=== PATIENT | male | born 1940 | race Caucasian/White ===

== ENCOUNTER → 2016-08-19 | Outpatient (CLI) | payer MEDICARE ==
[2016-08-19 08:54] LABS: Basophils % (A) 1 %; CH 27.6; CHCM 31.2; Eosinophils # (A) 0.1 k/uL (0-0.7); Eosinophils % (A) 3 %; HCT 36.3 % (39.0-53.0); HDW 2.42; HGB 11.5 gm/dL (13.0-17.5); Hypochromasia Slight; Luc % (Auto) 4; Lymphocytes # (A) 1.9 k/uL (1.0-4.8); Lymphocytes % (A) 36 %; MCH 28.2 pg (25.0-35.0); MCHC 31.7 g/dL (31.0-37.0); MCV 88.9 fL (80.0-100.0); Mean Platelet Volume 8.5; Monocytes # (A) 0.3 k/uL (0-1.0); Monocytes % (A) 6 %; Neutrophils # (A) 2.8 k/uL (1.3-7.7); Neutrophils % (A) 52 %; RBC 4.08 m/uL (4.30-5.90); RDW 15.6 % (11.5-15.5); WBC 5.3 k/uL (3.8-10.6); WBC (Perox) 5.66
[2016-08-19 10:28] LABS: Hemoglobin A1C 7.5 % (4.2-6.1)
[2016-08-19 12:22] LABS: Calcium 9.6 mg/dL (8.4-10.2); Potassium 5.6 mmol/L (3.5-5.1); Total Bilirubin 0.5 mg/dL (0.2-1.3); Total Protein 7.1 g/dL (6.3-8.2)
[2016-08-19 12:35] LABS: % Iron Saturation 13.8 % (20-50)
== END | disposition home or self-care (01) ==
LOC: LABWHC1 08:10
PROVIDERS: ATTEND Internal Medicine
DX: C67.9 Malignant neoplasm of bladder, unspecified (principal); I25.10 Atherosclerotic heart disease of native coronary artery without angina pectoris; E11.9 Type 2 diabetes mellitus without complications; I10 Essential (primary) hypertension; E03.9 Hypothyroidism, unspecified; D50.9 Iron deficiency anemia, unspecified; E78.00 Pure hypercholesterolemia, unspecified
CPT/HCPCS: 36415; 80053; 80061; 82550; 82728; 83036; 83540; 83550; 84443; 85025

== ENCOUNTER → 2016-12-16 | Outpatient (CLI) | payer MEDICARE ==
[2016-12-16 09:18] LABS: Calcium 9.2 mg/dL (8.4-10.2); Potassium 5.4 mmol/L (3.5-5.1); Total Bilirubin 0.5 mg/dL (0.2-1.3)
== END | disposition home or self-care (01) ==
LOC: LABWHC1 08:08
PROVIDERS: ATTEND Internal Medicine
DX: I25.10 Atherosclerotic heart disease of native coronary artery without angina pectoris (principal); E11.9 Type 2 diabetes mellitus without complications; I10 Essential (primary) hypertension
CPT/HCPCS: 36415; 80053; 80061; 82550; 83036

== ENCOUNTER 2016-12-19 09:05 | Emergency (ER) | payer MEDICARE ==
[2016-12-19] MEDS ORDERED: SODIUM CHLORIDE 0.9% 1,000 ML IV STA (09:31)
--- NOTE | 2016-12-19 09:35 | ED ---
General Adult HPI - General Chief complaint: Dizziness Stated complaint: dizziness Time Seen by Provider: 12/19/16 09:20 Source: patient, RN notes reviewed Mode of arrival: wheelchair Limitations: no limitations - History of Present Illness Initial comments: Patient is a pleasant 76-year-old male presenting to the emergency department with dizziness. Onset was when he woke this morning. Patient felt lightheaded. Patient states symptoms slowly improved throughout the morning and have now resolved. Patient has had somewhat similar symptoms previously with getting up fast however states this was not as bad lasted longer. Patient denies spinning type sensation. Patient did go to the gym today. No weakness. No confusion. No headache. No visual change. No chest pain. - Related Data Home Medications Medication Instructions Recorded Confirmed ALPRAZolam [Xanax] 0.5 mg PO HS 12/19/16 12/19/16 Aspirin 325 mg PO DAILY 12/19/16 12/19/16 Cholecalciferol (Vitamin D3) 2,000 unit PO W/SUPPER 12/19/16 12/19/16 [Vitamin D3] Cinnamon Bark [Cinnamon] 1,000 mg PO AC-BID 12/19/16 12/19/16 Clopidogrel [Plavix] 75 mg PO W/LUNCH 12/19/16 12/19/16 Fenofibrate [Fenofibrate] 160 mg PO W/LUNCH 12/19/16 12/19/16 Ferrous Sulfate [Feosol] 325 mg PO W/LUNCH 12/19/16 12/19/16 Fish Oil/Dha/Epa [Fish Oil 1,200 1 cap PO AC-BID 12/19/16 12/19/16 mg Fish Oil] Glimepiride [Amaryl] 2 mg PO AC-BID 12/19/16 12/19/16 Levothyroxine Sodium [Synthroid] 75 mcg PO DAILY@0200 12/19/16 12/19/16 Lisinopril [Lisinopril] 40 mg PO W/LUNCH 12/19/16 12/19/16 Metoprolol Succinate [Toprol XL] 25 mg PO DAILY 12/19/16 12/19/16 Multivitamins, Thera [Multivitamin 1 tab PO W/SUPPER 12/19/16 12/19/16 (formulary)] Nitroglycerin [Nitroglycerin] 0.4 mg PO Q5M PRN 12/19/16 12/19/16 Rosuvastatin Calcium [Rosuvastatin 40 mg PO HS 12/19/16 12/19/16 Calcium] Terazosin HCl 10 mg PO HS 12/19/16 12/19/16 Ubidecarenone [Co Q-10] 300 mg PO W/SUPPER 12/19/16 12/19/16 metFORMIN HCL [Glucophage] 1,000 mg PO AC-BID 12/19/16 12/19/16 Allergies Allergy/AdvReac Type Severity Reaction Status Date / Time No Known Allergies Allergy Verified 12/19/16 10:31 Review of Systems ROS Statement: Those systems with pertinent positive or pertinent negative responses have been documented in the HPI. ROS Other: All systems not noted in ROS Statement are negative. Constitutional: Denies: fever Eyes: Denies: eye pain ENT: Denies: ear pain Respiratory: Denies: cough Cardiovascular: Denies: chest pain, palpitations Endocrine: Denies: fatigue Gastrointestinal: Denies: abdominal pain Genitourinary: Denies: dysuria Musculoskeletal: Denies: back pain Skin: Denies: rash Neurological: Denies: headache, weakness, confusion Past Medical History Past Medical History: Diabetes Mellitus, Hyperlipidemia, Hypertension Additional Past Medical History / Comment(s): bladder CA History of Any Multi-Drug Resistant Organisms: None Reported Past Surgical History: Appendectomy, Coronary Bypass/CABG, Heart Catheterization With Stent, Pacemaker Additional Past Surgical History / Comment(s): stents in right leg Past Psychological History: No Psychological Hx Reported Smoking Status: Former smoker Past Alcohol Use History: None Reported Past Drug Use History: None Reported General Exam Limitations: no limitations General appearance: alert, in no apparent distress Head exam: Present: atraumatic Eye exam: Present: normal appearance, PERRL, EOMI. Absent: nystagmus ENT exam: Present: normal oropharynx Neck exam: Present: normal inspection Respiratory exam: Present: normal lung sounds bilaterally Cardiovascular Exam: Present: regular rate, normal rhythm, systolic murmur GI/Abdominal exam: Present: soft. Absent: tenderness Extremities exam: Present: normal inspection Neurological exam: Present: alert, CN II-XII intact. Absent: motor sensory deficit Expanded Speech: Present: fluid speech Cranial nerves: EOM's Intact: Normal, Facial Sensation: Normal Sensory exam: Upper Extremity Light Touch: Normal, Lower Extremity Light Touch: Normal Motor strength exam: RUE: 5, LUE: 5, RLE: 5, LLE: 5 Eye Response: (4) open spontaneously Motor Response: (6) obeys commands Verbal Response: (5) oriented Psychiatric exam: Present: normal affect, normal mood Skin exam: Present: normal color Course Vital Signs 12/19/16 12/19/16 12/19/16 09:08 10:18 10:38 Temperature 97.0 F L Pulse Rate 66 66 Pulse Rate [ 72 Sitting Latcher] Pulse Rate [ 64 Standing Latcher ] Pulse Rate [ 67 Supine Latcher] Respiratory 17 18 Rate Blood Pressure 171/82 154/74 Blood Pressure 168/80 [Right Arm Sitting] Blood Pressure 203/81 [Right Arm Standing] Blood Pressure 165/79 [Right Arm Supine] O2 Sat by Pulse 99 99 Oximetry EKG Findings - EKG Comments: EKG Findings:: Paced rhythm at 64. W[place] 298. QRS 178. QT 446. QTc 460. Left axis. Left bundle branch block. Nonspecific ST-T. Medical Decision Making - Medical Decision Making Patient reexamined and symptom-free. Previous lab results reviewed. Patient and family updated on results and need for follow-up. - Lab Data Result diagrams: 12/19/16 09:34 12/19/16 09:34 Lab Results 12/19/16 12/19/16 12/19/16 Range/Units 09:34 09:34 09:34 WBC 4.5 (3.8-10.6) k/uL RBC 4.06 L (4.30-5.90) m/uL Hgb 11.5 L (13.0-17.5) gm/dL Hct 35.0 L (39.0-53.0) % MCV 86.2 (80.0-100.0) fL MCH 28.2 (25.0-35.0) pg MCHC 32.8 (31.0-37.0) g/dL RDW 15.2 (11.5-15.5) % Plt Count 128 L (150-450) k/uL Neutrophils % 64 % Lymphocytes % 25 % Monocytes % 7 % Eosinophils % 1 % Basophils % 0 % Neutrophils # 2.9 (1.3-7.7) k/uL Lymphocytes # 1.1 (1.0-4.8) k/uL Monocytes # 0.3 (0-1.0) k/uL Eosinophils # 0.1 (0-0.7) k/uL Basophils # 0.0 (0-0.2) k/uL PT (9.0-12.0) sec INR (<1.2) APTT (22.0-30.0) sec Sodium 137 (137-145) mmol/L Potassium 5.2 H (3.5-5.1) mmol/L Chloride 107 (98-107) mmol/L Carbon Dioxide 18 L (22-30) mmol/L Anion Gap 12 mmol/L BUN 27 H (9-20) mg/dL Creatinine 1.46 H (0.66-1.25) mg/dL Est GFR (MDRD) Af Amer 57 (>60 ml/min/1.73 sqM) Est GFR (MDRD) Non-Af 47 (>60 ml/min/1.73 sqM) Glucose 239 H (74-99) mg/dL Calcium 9.6 (8.4-10.2) mg/dL Total Bilirubin 0.3 (0.2-1.3) mg/dL AST 46 (17-59) U/L ALT 50 (21-72) U/L Alkaline Phosphatase 45 (38-126) U/L Total Creatine Kinase 210 H (55-170) U/L CK-MB (CK-2) 3.1 H* (0.0-2.4) ng/mL CK-MB (CK-2) Rel Index 1.5 Troponin I 0.015 (0.000-0.034) ng/mL Total Protein 7.1 (6.3-8.2) g/dL Albumin 4.6 (3.5-5.0) g/dL 12/19/16 Range/Units 09:34 WBC (3.8-10.6) k/uL RBC (4.30-5.90) m/uL Hgb (13.0-17.5) gm/dL Hct (39.0-53.0) % MCV (80.0-100.0) fL MCH (25.0-35.0) pg MCHC (31.0-37.0) g/dL RDW (11.5-15.5) % Plt Count (150-450) k/uL Neutrophils % % Lymphocytes % % Monocytes % % Eosinophils % % Basophils % % Neutrophils # (1.3-7.7) k/uL Lymphocytes # (1.0-4.8) k/uL Monocytes # (0-1.0) k/uL Eosinophils # (0-0.7) k/uL Basophils # (0-0.2) k/uL PT 13.2 H (9.0-12.0) sec INR 1.3 H (<1.2) APTT 27.2 (22.0-30.0) sec Sodium (137-145) mmol/L Potassium (3.5-5.1) mmol/L Chloride (98-107) mmol/L Carbon Dioxide (22-30) mmol/L Anion Gap mmol/L BUN (9-20) mg/dL Creatinine (0.66-1.25) mg/dL Est GFR (MDRD) Af Amer (>60 ml/min/1.73 sqM) Est GFR (MDRD) Non-Af (>60 ml/min/1.73 sqM) Glucose (74-99) mg/dL Calcium (8.4-10.2) mg/dL Total Bilirubin (0.2-1.3) mg/dL AST (17-59) U/L ALT (21-72) U/L Alkaline Phosphatase (38-126) U/L Total Creatine Kinase (55-170) U/L CK-MB (CK-2) (0.0-2.4) ng/mL CK-MB (CK-2) Rel Index Troponin I (0.000-0.034) ng/mL Total Protein (6.3-8.2) g/dL Albumin (3.5-5.0) g/dL - Radiology Data Radiology results: report reviewed (Computed tomography scan of the brain shows no acute intercranial abnormality. Moderate patchy white matter hypodensities, probable chronic small vessel disease.), image reviewed (Chest x-ray shows no acute process.) Disposition Clinical Impression: Dizziness Disposition: HOME SELF-CARE Condition: Stable Instructions: Dizziness (ED) Additional Instructions: Please follow-up to in the next day or 2 for recheck. Return for increased dizziness, weakness, confusion, chest pain, speech problems, worsening symptoms or other concerns. Referrals: Chaz Mcdonald MD [Primary Care Provider] - 1-2 days Time of Disposition: 11:07
[2016-12-19 09:50] LABS: Basophils % (A) 0 %; CH 27.3; CHCM 31.8; Eosinophils # (A) 0.1 k/uL (0-0.7); Eosinophils % (A) 1 %; HDW 2.59; HGB 11.5 gm/dL (13.0-17.5); Luc # (Auto) 0.13; Luc % (Auto) 3; Lymphocytes # (A) 1.1 k/uL (1.0-4.8); Lymphocytes % (A) 25 %; MCH 28.2 pg (25.0-35.0); MCHC 32.8 g/dL (31.0-37.0); MCV 86.2 fL (80.0-100.0); Mean Platelet Volume 8.9; Monocytes # (A) 0.3 k/uL (0-1.0); Monocytes % (A) 7 %; Neutrophils # (A) 2.9 k/uL (1.3-7.7); Neutrophils % (A) 64 %; RBC 4.06 m/uL (4.30-5.90); RDW 15.2 % (11.5-15.5); WBC 4.5 k/uL (3.8-10.6); WBC (Perox) 4.25
[2016-12-19 09:58] LABS: INR 1.3 (<1.2); Partial Thromboplastin Time 27.2 sec (22.0-30.0); Prothrombin Time 13.2 sec (9.0-12.0)
[2016-12-19 10:06] LABS: Calcium 9.6 mg/dL (8.4-10.2); Potassium 5.2 mmol/L (3.5-5.1); Total Bilirubin 0.3 mg/dL (0.2-1.3); Total Protein 7.1 g/dL (6.3-8.2)
--- NOTE | 2016-12-19 10:19 | CT ---
EXAMINATION TYPE: CT brain wo con DATE OF EXAM: 12/19/2016 COMPARISON: NONE HISTORY: 76-year-old male with vertigo and Dizziness TECHNIQUE: Examination was done in axial plane without intravenous contrast. Coronal and sagittal r econstructions performed. CT DLP: 1121 mGycm Automated exposure control for dose reduction was used. FINDINGS: There is no evidence of acute intracranial hemorrhage, acute ischemic changes, mass, mass-effect, or extra-axial fluid collection. There is no effacement of cerebral sulci or basal subarachnoid cister ns. There is no hydrocephalus. There is no midline shift. Spann-white matter distinction is preserv ed. Mild generalized supratentorial volume loss. Moderate patchy subcortical, periventricular, and deep w kevin matter hypodensities are present. There is a sinuses and mastoid air cells are well pneumatized. Orbits and globes are intact. IMPRESSION: 1. No acute intracranial abnormality seen. 2. Moderate patchy white matter hypodensities. These are nonspecific and are probably related to echavarria ges of chronic small vessel ischemic disease. In the appropriate clinical setting, demyelinating dise ase would also be in the differential.
--- NOTE | 2016-12-19 10:20 | XR ---
EXAMINATION TYPE: XR chest 2V DATE OF EXAM: 12/19/2016 COMPARISON: NONE HISTORY: Syncope TECHNIQUE: Frontal and lateral views of the chest are obtained. FINDINGS: There is no focal air space opacity, pleural effusion, or pneumothorax seen. The cardiac silhouette size is enlarged with postsurgical changes including mediastinal clips and median sternoto my wires as well as left-sided cardiac device. The osseous structures are intact. Right costophreni c angle is not imaged and cannot be evaluated. IMPRESSION: No acute cardiopulmonary process.
[2016-12-19 10:46] LABS: Troponin I 0.015 ng/mL (0.000-0.034)
[2016-12-19 10:52] LABS: Creatine Kinase MB 3.1 ng/mL (0.0-2.4)
[2016-12-19 11:08] LABS: Glucose,Whole Blood 144 mg/dL (75-99)
[2016-12-19 11:17] VITALS: BP 155/72; PULSE 60; RESP 16; TEMP 97.2
== END 2016-12-19 11:17 | disposition home or self-care (01) ==
LOC: EC 09:05
DX: R42 Dizziness and giddiness (principal); R90.82 White matter disease, unspecified; R01.1 Cardiac murmur, unspecified; E78.5 Hyperlipidemia, unspecified; I10 Essential (primary) hypertension; E11.9 Type 2 diabetes mellitus without complications; Z87.891 Personal history of nicotine dependence; Z79.02 Long term (current) use of antithrombotics/antiplatelets; Z79.82 Long term (current) use of aspirin; Z79.84 Long term (current) use of oral hypoglycemic drugs; Z79.899 Other long term (current) drug therapy
CPT/HCPCS: 36415; 70450; 71020; 80053; 82550; 82553; 84484; 85025; 85610; 85730; 93005; 96360; 99284

== ENCOUNTER → 2017-08-18 | Outpatient (CLI) | payer MEDICARE ==
[2017-08-18 08:28] LABS: Basophils % (A) 1 %; Eosinophils # (A) 0.1 k/uL (0-0.7); Eosinophils % (A) 2 %; HCT 33.9 % (39.0-53.0); HGB 10.7 gm/dL (13.0-17.5); Lymphocytes # (A) 1.5 k/uL (1.0-4.8); Lymphocytes % (A) 31 %; MCH 27.2 pg (25.0-35.0); MCHC 31.6 g/dL (31.0-37.0); MCV 86.3 fL (80.0-100.0); Mean Platelet Volume 8.9; Monocytes # (A) 0.3 k/uL (0-1.0); Monocytes % (A) 6 %; Neutrophils # (A) 2.7 k/uL (1.3-7.7); Neutrophils % (A) 59 %; Platelet Count 134 k/uL (150-450); RBC 3.93 m/uL (4.30-5.90); RDW 15.4 % (11.5-15.5); WBC 4.6 k/uL (3.8-10.6)
[2017-08-18 08:42] LABS: Albumin 4.5 g/dL (3.5-5.0); Calcium 9.6 mg/dL (8.4-10.2); Potassium 5.4 mmol/L (3.5-5.1); Total Bilirubin 0.4 mg/dL (0.2-1.3); Total Protein 6.8 g/dL (6.3-8.2)
[2017-08-18 16:19] LABS: Iron Saturation 12.7 (15.00-50.00)
== END | disposition home or self-care (01) ==
LOC: LABWHC1 07:43
PROVIDERS: ATTEND Internal Medicine
DX: I10 Essential (primary) hypertension (principal); E11.9 Type 2 diabetes mellitus without complications; D64.9 Anemia, unspecified
CPT/HCPCS: 36415; 80053; 80061; 82550; 82607; 82728; 83036; 83540; 83550; 85025

== ENCOUNTER → 2017-09-11 | Outpatient (CLI) | payer MEDICARE ==
--- NOTE | 2017-09-11 10:21 | US ---
EXAMINATION TYPE: US venous doppler duplex LE DATE OF EXAM: 09/11/2017 10:00 AM COMPARISON: NONE CLINICAL HISTORY: Q07115 DVT, R60.0 EDEMA LEG. Right leg swelling. Hx of right leg stents x 3 years ago, on blood thinners- aspirin and Plavix. No hx of blood clots. No pain now. SIDE PERFORMED: Bilateral TECHNIQUE: The lower extremity deep venous system is examined utilizing real time linear array sonog bianca with graded compression, doppler sonography and color-flow sonography. VESSELS IMAGED: External Iliac Vein (EIV) Common Femoral Vein Deep Femoral Vein Greater Saphenous Vein * Femoral Vein Popliteal Vein Small Saphenous Vein * Proximal Calf Veins (* superficial vessels) Limited exam due to arterial shadowing Right Leg: Negative for DVT Left Leg: Negative for DVT Grayscale, color doppler, spectral doppler imaging performed of the deep veins of the bilateral lower extremities. There is normal flow, compressibility, vascular waveforms. IMPRESSION: Suboptimal study per technologist without convincing evidence for acute DVT in either l ower extremity.
--- NOTE | 2017-09-11 10:23 | US ---
EXAMINATION TYPE: US duplex aorta DATE OF EXAM: 09/11/2017 COMPARISON: NONE CLINICAL HISTORY: R09.89 ABDOMINAL BRUIT. Mild ND in May, bruit, bypass in 1993, HTN, Nonsmoker, No family hx of AAA EXAM MEASUREMENTS: Abdominal Aorta: Proximal: 2.5 x 2.5 cm Mid: 1.7 x 2.4 cm Distal: 1.1 x 1.5 cm Bifurcation: Right - 0.8 x 1.0 cm Left - 0.8 x 1.0 cm IMPRESSION: Diffuse atherosclerotic change without aneurysmal change of the abdominal aorta successfu lly visualized through the bifurcation.
== END ==
LOC: RADUSWWP 08:48
PROVIDERS: ATTEND Internal Medicine Cardiovascular Disease
DX: I70.0 Atherosclerosis of aorta (principal); R60.0 Localized edema
CPT/HCPCS: 93970; 93979

== ENCOUNTER → 2017-12-02 | Outpatient (CLI) | payer MEDICARE ==
[2017-12-02 08:55] LABS: Basophils % (A) 0 %; Eosinophils # (A) 0.2 k/uL (0-0.7); Eosinophils % (A) 4 %; HCT 33.7 % (39.0-53.0); HGB 10.4 gm/dL (13.0-17.5); Hypochromasia Slight; Lymphocytes # (A) 1.2 k/uL (1.0-4.8); Lymphocytes % (A) 23 %; MCH 27.1 pg (25.0-35.0); MCHC 30.9 g/dL (31.0-37.0); MCV 87.7 fL (80.0-100.0); Mean Platelet Volume 7.8; Monocytes # (A) 0.3 k/uL (0-1.0); Monocytes % (A) 7 %; Neutrophils # (A) 3.2 k/uL (1.3-7.7); Neutrophils % (A) 64 %; Platelet Count 125 k/uL (150-450); RBC 3.84 m/uL (4.30-5.90); RDW 15.9 % (11.5-15.5)
[2017-12-02 09:00] LABS: Calcium 9.5 mg/dL (8.4-10.2); Potassium 5.7 mmol/L (3.5-5.1)
== END | disposition home or self-care (01) ==
LOC: LABWHC1 07:44
PROVIDERS: ATTEND Internal Medicine
DX: E11.9 Type 2 diabetes mellitus without complications (principal)
CPT/HCPCS: 36415; 80048; 80061; 82550; 83036; 84450; 84460; 85025

== ENCOUNTER → 2018-08-13 | Outpatient (CLI) | payer MEDICARE ==
[2018-08-13 08:17] LABS: Anisocytosis Slight; Basophils % (A) 1 %; Eosinophils # (A) 0.1 k/uL (0-0.7); Eosinophils % (A) 3 %; HCT 34.6 % (39.0-53.0); HGB 10.6 gm/dL (13.0-17.5); Hypochromasia Slight; Lymphocytes # (A) 1.3 k/uL (1.0-4.8); Lymphocytes % (A) 31 %; MCH 26.9 pg (25.0-35.0); MCHC 30.6 g/dL (31.0-37.0); MCV 87.9 fL (80.0-100.0); Mean Platelet Volume 9.8; Monocytes # (A) 0.2 k/uL (0-1.0); Monocytes % (A) 6 %; Neutrophils # (A) 2.4 k/uL (1.3-7.7); Neutrophils % (A) 56 %; Platelet Count 115 k/uL (150-450); RBC 3.93 m/uL (4.30-5.90); WBC 4.2 k/uL (3.8-10.6)
[2018-08-13 16:37] LABS: Albumin 4.6 g/dL (3.80-4.90); Albumin/Globulin Ratio 2.71 (1.60-3.17); Anion Gap 6.2 mmol/L (4.00-12.00); Calcium 8.9 mg/dL (8.7-10.3); Carbon Dioxide 22.8 mmol/L (21.6-31.8); Globulin 1.7 g/dL (1.6-3.3); Total Bilirubin 0.5 mg/dL (0.2-1.2); Total Protein 6.3 g/dL (6.2-8.2)
[2018-08-13 16:44] LABS: Iron Saturation 10.68 (15.00-50.00)
== END | disposition home or self-care (01) ==
LOC: LABWHC1 07:54
PROVIDERS: ATTEND Internal Medicine
DX: E11.9 Type 2 diabetes mellitus without complications (principal); D64.9 Anemia, unspecified
CPT/HCPCS: 36415; 80053; 80061; 82550; 83036; 83540; 83550; 85025

== ENCOUNTER → 2018-11-18 | Outpatient (CLI) | payer MEDICARE ==
[2018-11-18 08:57] LABS: Anisocytosis Slight; Appearance,Urine Clear (Clear); Basophils % (A) 1 %; Bilirubin,Urine Negative (Negative); Blood,Urine Negative (Negative); Color,Urine Yellow; Eosinophils # (A) 0.1 k/uL (0-0.7); Eosinophils % (A) 2 %; Glucose,Urine (UA) Negative (Negative); HCT 29.6 % (39.0-53.0); HGB 9.2 gm/dL (13.0-17.5); Hypochromasia Slight; Ketones,Urine Negative (Negative); Leukocyte Esterase,Urine Negative (Negative); Lymphocytes % (A) 23 %; MCH 27.1 pg (25.0-35.0); MCHC 31.2 g/dL (31.0-37.0); MCV 86.9 fL (80.0-100.0); Mean Platelet Volume 9.3; Monocytes # (A) 0.3 k/uL (0-1.0); Monocytes % (A) 6 %; Neutrophils # (A) 2.9 k/uL (1.3-7.7); Neutrophils % (A) 67 %; Nitrite,Urine Negative (Negative); PH, Urine 6.5 (5.0-8.0); Platelet Count 105 k/uL (150-450); Protein,Urine Negative (Negative); RDW 17.5 % (11.5-15.5); Specific Gravity,Urine 1.018 (1.001-1.035); Urobilinogen,Urine <2.0 mg/dL (<2.0); WBC 4.3 k/uL (3.8-10.6)
[2018-11-18 17:22] LABS: Iron Saturation 9.7 (15.00-50.00)
[2018-11-18 17:30] LABS: Ferritin 88.6 ng/mL (22.0-322.0)
[2018-11-18 17:48] LABS: African American GFR (CKD) 60.6 (60.0-200.0); Albumin 4.6 g/dL (3.80-4.90); Albumin/Globulin Ratio 2.56 (1.60-3.17); Anion Gap 9.5 mmol/L (4.00-12.00); BUN/Creat Ratio 23.08 Ratio (12.00-20.00); Calcium 9.2 mg/dL (8.7-10.3); Carbon Dioxide 19.5 mmol/L (21.6-31.8); Chol/HDL Ratio 2.48; Globulin 1.8 g/dL (1.6-3.3); LDL Cholesterol,Calculated 56.8 mg/dL (0.0-131.0); Magnesium 1.9 mg/dL (1.5-2.4); Non-African American GFR(CKD) 52.3 (60.0-200.0); Potassium 5.3 mmol/L (3.5-5.5); Total Bilirubin 0.6 mg/dL (0.3-1.2); Total Protein 6.4 g/dL (6.2-8.2); VLDL Calculation 20.2 mg/dL (5.00-40.00)
== END | disposition home or self-care (01) ==
LOC: LABWHC1 07:48
PROVIDERS: ATTEND Internal Medicine
DX: M48.02 Spinal stenosis, cervical region (principal); E11.9 Type 2 diabetes mellitus without complications; D64.9 Anemia, unspecified; E03.9 Hypothyroidism, unspecified; Z79.01 Long term (current) use of anticoagulants
CPT/HCPCS: 36415; 80053; 80061; 81003; 82550; 82728; 83036; 83540; 83550; 83735; 84443; 85025; 85730; 86850; 87070; 87086

== ENCOUNTER → 2018-12-07 | Outpatient (CLI) | payer MEDICARE ==
[2018-12-07 12:48] LABS: Anisocytosis Slight; HGB 9.2 gm/dL (13.0-17.5); Hypochromasia Slight; MCHC 31.8 g/dL (31.0-37.0); MCV 88.1 fL (80.0-100.0); Mean Platelet Volume 8.7; Platelet Count 105 k/uL (150-450); RBC 3.29 m/uL (4.30-5.90); RDW 18.4 % (11.5-15.5); WBC 4.5 k/uL (3.8-10.6)
== END | disposition home or self-care (01) ==
LOC: LABWHC1 11:28
PROVIDERS: ATTEND Internal Medicine
DX: D64.9 Anemia, unspecified (principal)
CPT/HCPCS: 36415; 85027

== ENCOUNTER → 2019-02-05 | Outpatient (CLI) | payer MEDICARE ==
[2019-02-05 12:46] LABS: Anisocytosis Slight; Basophils % (A) 1 %; Eosinophils # (A) 0.1 k/uL (0-0.7); Eosinophils % (A) 3 %; HCT 27.9 % (39.0-53.0); HGB 8.5 gm/dL (13.0-17.5); Hypochromasia Moderate; Lymphocytes # (A) 0.8 k/uL (1.0-4.8); Lymphocytes % (A) 22 %; MCH 27.2 pg (25.0-35.0); MCHC 30.4 g/dL (31.0-37.0); MCV 89.4 fL (80.0-100.0); Mean Platelet Volume 9.2; Monocytes # (A) 0.2 k/uL (0-1.0); Monocytes % (A) 6 %; Neutrophils # (A) 2.3 k/uL (1.3-7.7); Neutrophils % (A) 66 %; Platelet Count 107 k/uL (150-450); RBC 3.12 m/uL (4.30-5.90); RDW 18.1 % (11.5-15.5); WBC 3.5 k/uL (3.8-10.6)
[2019-02-05 18:49] LABS: % Iron Saturation 10.67 (15.00-50.00)
[2019-02-05 18:58] LABS: Ferritin 87.7 ng/mL (22.0-322.0)
== END | disposition home or self-care (01) ==
LOC: LABWHC1 11:31
PROVIDERS: ATTEND Internal Medicine
DX: D64.9 Anemia, unspecified (principal)
CPT/HCPCS: 36415; 82728; 83540; 83550; 85025

== ENCOUNTER → 2019-03-01 | Outpatient (CLI) | payer MEDICARE ==
[2019-03-01 11:24] LABS: Anisocytosis Slight; Basophils % (A) 0 %; Eosinophils # (A) 0.1 k/uL (0-0.7); Eosinophils % (A) 3 %; HCT 26.6 % (39.0-53.0); HGB 8.4 gm/dL (13.0-17.5); Hypochromasia Moderate; Lymphocytes # (A) 0.9 k/uL (1.0-4.8); Lymphocytes % (A) 23 %; MCH 28.3 pg (25.0-35.0); MCHC 31.4 g/dL (31.0-37.0); MCV 90.1 fL (80.0-100.0); Mean Platelet Volume 7.9; Monocytes # (A) 0.2 k/uL (0-1.0); Monocytes % (A) 5 %; Neutrophils # (A) 2.7 k/uL (1.3-7.7); Neutrophils % (A) 67 %; Platelet Count 124 k/uL (150-450); RBC 2.96 m/uL (4.30-5.90); RDW 17.7 % (11.5-15.5)
[2019-03-01 16:51] LABS: % Iron Saturation 10.21 (15.00-50.00)
[2019-03-01 16:59] LABS: Ferritin 160.9 ng/mL (22.0-322.0)
== END | disposition home or self-care (01) ==
LOC: LABWHC1 10:17
PROVIDERS: ATTEND Internal Medicine
DX: D64.9 Anemia, unspecified (principal)
CPT/HCPCS: 36415; 82728; 83540; 83550; 85025

== ENCOUNTER → 2019-03-12 | Outpatient (CLI) | payer MEDICARE ==
[2019-03-12 09:02] LABS: Anisocytosis Slight; Basophils % (A) 0 %; Eosinophils # (A) 0.1 k/uL (0-0.7); Eosinophils % (A) 2 %; HGB 8.2 gm/dL (13.0-17.5); Hypochromasia Slight; Lymphocytes # (A) 0.9 k/uL (1.0-4.8); Lymphocytes % (A) 22 %; MCH 28.3 pg (25.0-35.0); MCHC 31.7 g/dL (31.0-37.0); MCV 89.3 fL (80.0-100.0); Mean Platelet Volume 10.8; Monocytes # (A) 0.2 k/uL (0-1.0); Monocytes % (A) 6 %; Neutrophils # (A) 2.7 k/uL (1.3-7.7); Neutrophils % (A) 67 %; Platelet Count 104 k/uL (150-450); RBC 2.91 m/uL (4.30-5.90); RDW 17.6 % (11.5-15.5); WBC 4.1 k/uL (3.8-10.6)
[2019-03-12 18:29] LABS: Ferritin 141.1 ng/mL (22.0-322.0); T4, Free (Free Thyroxine) 1.1 ng/dL (0.80-1.80)
[2019-03-12 19:29] LABS: Hemoglobin A1C 5.4 % (4.0-6.0)
[2019-03-12 20:06] LABS: % Iron Saturation 9.11 (15.00-50.00); African American GFR (CKD) 60.6 (60.0-200.0); Albumin 4.6 g/dL (3.80-4.90); Albumin/Globulin Ratio 2.88 (1.60-3.17); Anion Gap 8.8 mmol/L (4.00-12.00); BUN/Creat Ratio 29.23 Ratio (12.00-20.00); Calcium 8.9 mg/dL (8.7-10.3); Carbon Dioxide 21.2 mmol/L (21.6-31.8); Chol/HDL Ratio 2.2; Globulin 1.6 g/dL (1.6-3.3); Non-African American GFR(CKD) 52.3 (60.0-200.0); Potassium 4.9 mmol/L (3.5-5.5); Total Bilirubin 0.6 mg/dL (0.2-1.2); Total Protein 6.2 g/dL (6.2-8.2)
== END ==
LOC: LABWHC1 07:58
PROVIDERS: ATTEND Internal Medicine
DX: E11.9 Type 2 diabetes mellitus without complications (principal); D64.9 Anemia, unspecified; E03.9 Hypothyroidism, unspecified
CPT/HCPCS: 36415; 80053; 80061; 82043; 82550; 82570; 82607; 82728; 83036; 83540; 83550; 84439; 84443; 85025

== ENCOUNTER → 2019-09-13 | Outpatient (CLI) | payer MEDICARE ==
[2019-09-13 10:59] LABS: Appearance,Urine Clear (Clear); Bilirubin,Urine Negative (Negative); Blood,Urine Negative (Negative); Color,Urine Light Yellow; Glucose,Urine (UA) Negative (Negative); Ketones,Urine Negative (Negative); Leukocyte Esterase,Urine Negative (Negative); Nitrite,Urine Negative (Negative); Protein,Urine Negative (Negative); Specific Gravity,Urine 1.008 (1.001-1.035); Urobilinogen,Urine <2.0 mg/dL (<2.0)
[2019-09-13 11:01] LABS: Protein/Creatinine Ratio,Urine 0.313
[2019-09-13 18:07] LABS: African American GFR (CKD) 47.1 (60.0-200.0); Albumin 4.3 g/dL (3.80-4.90); BUN/Creat Ratio 33.75 Ratio (12.00-20.00); Calcium 8.6 mg/dL (8.7-10.3); Non-African American GFR(CKD) 40.7 (60.0-200.0); Phosphorus 4.6 mg/dL (2.4-5.1); Potassium 4.6 mmol/L (3.5-5.5)
== END | disposition home or self-care (01) ==
LOC: LABWHC1 08:55
PROVIDERS: ATTEND Internal Medicine Nephrology
DX: N18.3 Chronic kidney disease, stage 3 (moderate) (principal); E83.9 Disorder of mineral metabolism, unspecified; M89.9 Disorder of bone, unspecified
CPT/HCPCS: 36415; 80069; 81003; 82306; 82570; 83970; 84156

== ENCOUNTER 2019-10-28 18:08 | Emergency (ER) | payer MEDICARE ==
[2019-10-28 18:51] LABS: Anisocytosis Slight; Basophils % (A) 0 %; Eosinophils # (A) 0.1 k/uL (0-0.7); Eosinophils % (A) 2 %; HCT 28.5 % (39.0-53.0); Lymphocytes # (A) 0.7 k/uL (1.0-4.8); Lymphocytes % (A) 12 %; MCH 28.2 pg (25.0-35.0); MCHC 31.6 g/dL (31.0-37.0); MCV 89.1 fL (80.0-100.0); Mean Platelet Volume 8.8; Monocytes # (A) 0.5 k/uL (0-1.0); Monocytes % (A) 8 %; Neutrophils # (A) 4.9 k/uL (1.3-7.7); Neutrophils % (A) 77 %; Platelet Count 120 k/uL (150-450); RDW 17.1 % (11.5-15.5); WBC 6.3 k/uL (3.8-10.6)
[2019-10-28 19:00] LABS: INR 1.4 (<1.2); Prothrombin Time 14.3 sec (9.0-12.0)
[2019-10-28] MEDS ORDERED: DEXTROSE 5% IN WATER 100 ML with AMIODARONE 150 MG IV ONE (19:00)
[2019-10-28] MEDS ORDERED: AMIODARONE 360 MG in DEXTROSE 5% IN WATER 200 ML IV ONE ×2 (19:00)
--- NOTE | 2019-10-28 19:00 | ED ---
General Adult HPI - General Chief complaint: Chest Pain Stated complaint: chest discomfort Time Seen by Provider: 10/28/19 18:31 Source: patient, family, RN notes reviewed, old records reviewed Mode of arrival: wheelchair Limitations: no limitations - History of Present Illness Initial comments: 79-year-old male presenting with 2 hours of chest pain and palpitations. Chest pain is right-sided. Patient has history of CAD status post CABG and stenting. He follows with cardiology out of [facility]. He developed palpitations and racing heart approximately 2 hours ago. He has previous history of arrhythmia but is uncertain of what type. He has required cardioversion in the past. He denies nausea or diaphoresis. He denies abdominal pain nausea vomiting or diarrhea. Denies fever. Denies cough. He is currently on Coreg, he will milligram aspirin. No other anti-arrhythmic drugs or blood thinners. - Related Data Home Medications Medication Instructions Recorded Confirmed ALPRAZolam [Xanax] 0.5 mg PO HS 12/19/16 02/23/19 Cholecalciferol (Vitamin D3) 2,000 unit PO W/SUPPER 12/19/16 02/23/19 [Vitamin D3] Cinnamon Bark [Cinnamon] 1,000 mg PO DAILY 12/19/16 02/23/19 Clopidogrel [Plavix] 75 mg PO W/LUNCH 12/19/16 02/23/19 Fenofibrate 160 mg PO W/LUNCH 12/19/16 02/23/19 Ferrous Sulfate [Feosol] 325 mg PO W/LUNCH 12/19/16 02/23/19 Fish Oil/Dha/Epa [Fish Oil 1,200 1 cap PO AC-BID 12/19/16 02/23/19 mg Fish Oil] Glimepiride [Amaryl] 2 mg PO AC-LUNCH 12/19/16 02/23/19 Metoprolol Succinate [Toprol XL] 50 mg PO BID 12/19/16 02/23/19 Multivitamins, Thera [Multivitamin 1 tab PO W/SUPPER 12/19/16 02/23/19 (formulary)] Nitroglycerin 0.4 mg PO Q5M PRN 12/19/16 02/23/19 Terazosin HCl 10 mg PO HS 12/19/16 02/23/19 lisinopriL [Lisinopril] 40 mg PO W/LUNCH 12/19/16 02/23/19 Ascorbic Acid [Vitamin C] 1,000 mg PO DAILY 02/23/19 02/23/19 Aspirin [Adult Low Dose Aspirin EC] 81 mg PO DAILY 02/23/19 02/23/19 Levothyroxine Sodium [Synthroid] 88 mcg PO QAM 02/23/19 02/23/19 Rosuvastatin [Crestor] 20 mg PO HS 02/23/19 02/23/19 Ubidecarenone [Co Q-10] 100 mg PO DAILY 02/23/19 02/23/19 metFORMIN HCL [Glucophage] 1,000 mg PO AC-LUNCH 02/23/19 02/23/19 metFORMIN HCL [Glucophage] 1,000 mg PO AC-SUPPER 02/23/19 02/23/19 metFORMIN HCL [Glucophage] 500 mg PO AC-BRKFST 02/23/19 02/23/19 Allergies Allergy/AdvReac Type Severity Reaction Status Date / Time No Known Allergies Allergy Verified 10/28/19 18:12 Review of Systems ROS Statement: Those systems with pertinent positive or pertinent negative responses have been documented in the HPI. ROS Other: All systems not noted in ROS Statement are negative. Past Medical History Past Medical History: Diabetes Mellitus, Hyperlipidemia, Hypertension Additional Past Medical History / Comment(s): bladder CA History of Any Multi-Drug Resistant Organisms: None Reported Past Surgical History: Appendectomy, Coronary Bypass/CABG, Heart Catheterization With Stent, Pacemaker Additional Past Surgical History / Comment(s): stents in right leg Past Psychological History: No Psychological Hx Reported Smoking Status: Never smoker Past Alcohol Use History: None Reported Past Drug Use History: None Reported General Exam Limitations: no limitations General appearance: alert, in no apparent distress Head exam: Present: atraumatic, normocephalic Eye exam: Present: normal appearance, PERRL ENT exam: Present: normal exam Neck exam: Present: normal inspection. Absent: tenderness, meningismus Respiratory exam: Present: normal lung sounds bilaterally. Absent: respiratory distress, wheezes Cardiovascular Exam: Present: normal rhythm, tachycardia GI/Abdominal exam: Present: soft, distended. Absent: tenderness, guarding, rebound Extremities exam: Present: pedal edema. Absent: calf tenderness Back exam: Present: normal inspection, full ROM Neurological exam: Present: alert, oriented X3, CN II-XII intact. Absent: motor sensory deficit Psychiatric exam: Present: normal affect, normal mood Skin exam: Present: warm, dry, intact. Absent: cyanosis, diaphoretic Course Vital Signs 10/28/19 10/28/19 10/28/19 18:12 19:37 20:00 Temperature 98 F 97.7 F Pulse Rate 127 H Pulse Rate [ 123 H 118 H Carpet Layer ] Respiratory 20 18 18 Rate Blood Pressure 138/64 Blood Pressure 121/92 136/94 [Left Arm] O2 Sat by Pulse 97 97 98 Oximetry 10/28/19 20:15 Temperature Pulse Rate Pulse Rate [ 120 H Carpet Layer ] Respiratory 18 Rate Blood Pressure Blood Pressure 132/88 [Left Arm] O2 Sat by Pulse Oximetry - Reevaluation(s) Reevaluation #1: 10/28/191954 Case discussed with Dr. eLong, does agree with amiodarone infusion, does also agree with transfer for evaluation by the patient's own collar turner at EKG Findings - EKG Comments: EKG Findings:: EKG: Wide QRS tachycardia, left axis deviation, left bundle branch block, history of left bundle branch block. Rate of 126, QRS duration 170, QTC 559, similar QRS morphology to previous EKG. There is no definitive atrial, question P-wave in lead 2. Medical Decision Making - Medical Decision Making 79-year-old male presenting with palpitations and right-sided chest pain. EKG showed a left bundle branch block which the patient does have history of and a wide complex tachycardia, there is a question of atrial activity seen in lead 2. Rate is 126 and the blood pressure is stable. Patient is started on amiodarone. He has significant heart history and requests transfer to [facility]. Laboratory studies reveal hemoglobin 9, comparison of 8.2 this is improved. He has a normal white blood cell count. INR is 1.4. Sodium is 129. His creatinine is 1.49 which is baseline for this patient. His initial troponin is negative. His BNP is elevated at 2870. Chest x-ray shows cardiomegaly which is larger than previous x-ray in 2017. There is questionable early interstitial edema. I did discuss with the patient transfer versus admission to this hospital, they are requesting transfer to [place]. I discussed the case with the transfer team at [facility] and Dr. Laureano has accepted. Diagnosis: Wide complex tachycardia with history of left bundle branch block. - Lab Data Result diagrams: 10/28/19 18:36 10/28/19 18:36 Lab Results 10/28/19 10/28/19 10/28/19 Range/Units 18:36 18:36 18:36 WBC 6.3 (3.8-10.6) k/uL RBC 3.20 L (4.30-5.90) m/uL Hgb 9.0 L (13.0-17.5) gm/dL Hct 28.5 L (39.0-53.0) % MCV 89.1 (80.0-100.0) fL MCH 28.2 (25.0-35.0) pg MCHC 31.6 (31.0-37.0) g/dL RDW 17.1 H (11.5-15.5) % Plt Count 120 L (150-450) k/uL Neutrophils % 77 % Lymphocytes % 12 % Monocytes % 8 % Eosinophils % 2 % Basophils % 0 % Neutrophils # 4.9 (1.3-7.7) k/uL Lymphocytes # 0.7 L (1.0-4.8) k/uL Monocytes # 0.5 (0-1.0) k/uL Eosinophils # 0.1 (0-0.7) k/uL Basophils # 0.0 (0-0.2) k/uL Anisocytosis Slight PT 14.3 H (9.0-12.0) sec INR 1.4 H (<1.2) APTT 31.0 H (22.0-30.0) sec Sodium 129 L (137-145) mmol/L Potassium 4.7 (3.5-5.1) mmol/L Chloride 97 L (98-107) mmol/L Carbon Dioxide 21 L (22-30) mmol/L Anion Gap 11 mmol/L BUN 44 H (9-20) mg/dL Creatinine 1.49 H (0.66-1.25) mg/dL Est GFR (CKD-EPI)AfAm 51 (>60 ml/min/1.73 sqM) Est GFR (CKD-EPI)NonAf 44 (>60 ml/min/1.73 sqM) Glucose 146 H (74-99) mg/dL Calcium 8.9 (8.4-10.2) mg/dL Magnesium 2.1 (1.6-2.3) mg/dL Total Bilirubin 0.7 (0.2-1.3) mg/dL AST 46 (17-59) U/L ALT 19 (4-49) U/L Alkaline Phosphatase 167 H (38-126) U/L Troponin I (0.000-0.034) ng/mL NT-Pro-B Natriuret Pep pg/mL Total Protein 6.8 (6.3-8.2) g/dL Albumin 4.2 (3.5-5.0) g/dL 10/28/19 10/28/19 Range/Units 18:36 18:36 WBC (3.8-10.6) k/uL RBC (4.30-5.90) m/uL Hgb (13.0-17.5) gm/dL Hct (39.0-53.0) % MCV (80.0-100.0) fL MCH (25.0-35.0) pg MCHC (31.0-37.0) g/dL RDW (11.5-15.5) % Plt Count (150-450) k/uL Neutrophils % % Lymphocytes % % Monocytes % % Eosinophils % % Basophils % % Neutrophils # (1.3-7.7) k/uL Lymphocytes # (1.0-4.8) k/uL Monocytes # (0-1.0) k/uL Eosinophils # (0-0.7) k/uL Basophils # (0-0.2) k/uL Anisocytosis PT (9.0-12.0) sec INR (<1.2) APTT (22.0-30.0) sec Sodium (137-145) mmol/L Potassium (3.5-5.1) mmol/L Chloride (98-107) mmol/L Carbon Dioxide (22-30) mmol/L Anion Gap mmol/L BUN (9-20) mg/dL Creatinine (0.66-1.25) mg/dL Est GFR (CKD-EPI)AfAm (>60 ml/min/1.73 sqM) Est GFR (CKD-EPI)NonAf (>60 ml/min/1.73 sqM) Glucose (74-99) mg/dL Calcium (8.4-10.2) mg/dL Magnesium (1.6-2.3) mg/dL Total Bilirubin (0.2-1.3) mg/dL AST (17-59) U/L ALT (4-49) U/L Alkaline Phosphatase (38-126) U/L Troponin I 0.014 (0.000-0.034) ng/mL NT-Pro-B Natriuret Pep 2870 pg/mL Total Protein (6.3-8.2) g/dL Albumin (3.5-5.0) g/dL Critical Care Time Critical Care Time: Yes Total Critical Care Time: 35 Disposition Clinical Impression: Wide-complex tachycardia Disposition: OTHER INSTITUTION NOT DEFINED Condition: Stable Is patient prescribed a controlled substance at d/c from ED?: No Referrals: Chaz Mcdonald MD [Primary Care Provider] - 1-2 days Time of Disposition: 20:28 - Out of Hospital Transfer - Req. Specs Out of Hospital Transfer - Requested Specifics: Other Emergency Center (Transfer to [place] in [place])
[2019-10-28 19:04] LABS: Albumin 4.2 g/dL (3.5-5.0); Calcium 8.9 mg/dL (8.4-10.2); Magnesium 2.1 mg/dL (1.6-2.3); Potassium 4.7 mmol/L (3.5-5.1); Total Bilirubin 0.7 mg/dL (0.2-1.3); Total Protein 6.8 g/dL (6.3-8.2)
[2019-10-28] MEDS ORDERED: SODIUM CHLORIDE 0.9% 500 ML 500 ML IV ONE (19:53)
--- NOTE | 2019-10-28 20:20 | XR ---
EXAMINATION: XR chest 2V DATE AND TIME: 10/28/2019 7:35 PM CLINICAL INDICATION: PHH; Chest Pain TECHNIQUE: Departmental protocol COMPARISON: 12/19/2016 FINDINGS: Pacemaker, sternal sutures, mediastinal clips, and EKG leads noted. There is a subtle interstitial pattern bilaterally which could correlate with a clinical diagnosis of minimal interstitial phase pulmonary edema. The lungs appear to be clear and well expanded otherwise . The pleural spaces are negative. The cardiac silhouette is moderately enlarged, appearing more prominent on the current study. This co uld be secondary to differences in the frontal radiograph technique, pericardial effusion, or cardiom egaly. The remainder of the mediastinal silhouette is unremarkable. The skeletal structures and soft tissues are negative for acute findings. IMPRESSION: No definite acute process. However, request clinical consideration for mild interstitial phase pulmonary edema and for enlargeme nt of the cardiac silhouette since the prior study from 2016.
[2019-10-28 21:24] VITALS: BP 138/94; PULSE 110; RESP 20; TEMP 98.6
[2019-10-29] MEDS ORDERED: AMIODARONE 300 MG in DEXTROSE 5% IN WATER 250 ML IV SCH ×2 (01:00)
== END 2019-10-28 21:00 | disposition short-term general hospital (02) ==
LOC: EC 18:08
DX: R00.0 Tachycardia, unspecified (principal); I25.10 Atherosclerotic heart disease of native coronary artery without angina pectoris; E11.9 Type 2 diabetes mellitus without complications; I11.9 Hypertensive heart disease without heart failure; E78.5 Hyperlipidemia, unspecified; Z79.84 Long term (current) use of oral hypoglycemic drugs; Z79.899 Other long term (current) drug therapy; Z95.5 Presence of coronary angioplasty implant and graft; Z95.0 Presence of cardiac pacemaker; Z85.51 Personal history of malignant neoplasm of bladder
CPT/HCPCS: 99291; 96365; 96366; 36415; 93005; 83880; 80053; 83735; 84484; 85025; 85610; 85730; 71046; J0282 ×2

== ENCOUNTER → 2019-11-25 | Outpatient (CLI) | payer MEDICARE ==
[2019-11-25 10:31] LABS: Anisocytosis Slight; Basophils % (A) 1 %; Eosinophils # (A) 0.2 k/uL (0-0.7); Eosinophils % (A) 3 %; HCT 30.6 % (39.0-53.0); HGB 9.6 gm/dL (13.0-17.5); Lymphocytes # (A) 1.2 k/uL (1.0-4.8); Lymphocytes % (A) 20 %; MCH 28.3 pg (25.0-35.0); MCHC 31.5 g/dL (31.0-37.0); MCV 89.7 fL (80.0-100.0); Mean Platelet Volume 8.8; Monocytes # (A) 0.6 k/uL (0-1.0); Monocytes % (A) 9 %; Neutrophils % (A) 66 %; Platelet Count 143 k/uL (150-450); RBC 3.41 m/uL (4.30-5.90); RDW 16.5 % (11.5-15.5); WBC 6.2 k/uL (3.8-10.6)
[2019-11-25 17:07] LABS: African American GFR (CKD) 46.8 (60.0-200.0); Albumin 4.5 g/dL (3.80-4.90); Calcium 9.3 mg/dL (8.7-10.3); Non-African American GFR(CKD) 40.4 (60.0-200.0); Phosphorus 4.5 mg/dL (2.4-5.1); Potassium 4.4 mmol/L (3.5-5.5)
== END | disposition home or self-care (01) ==
LOC: LABWHC1 09:38
PROVIDERS: ATTEND Internal Medicine Nephrology
DX: N18.3 Chronic kidney disease, stage 3 (moderate) (principal); D63.1 Anemia in chronic kidney disease; E83.9 Disorder of mineral metabolism, unspecified; M89.9 Disorder of bone, unspecified
CPT/HCPCS: 36415; 80069; 82306; 83735; 83970; 85025

== ENCOUNTER → 2019-12-17 | Outpatient (CLI) | payer MEDICARE ==
[2019-12-17 09:58] LABS: Anisocytosis Slight; Basophils % (A) 1 %; Eosinophils # (A) 0.2 k/uL (0-0.7); Eosinophils % (A) 3 %; HGB 10.5 gm/dL (13.0-17.5); Lymphocytes # (A) 1.2 k/uL (1.0-4.8); Lymphocytes % (A) 19 %; MCHC 30.9 g/dL (31.0-37.0); MCV 90.4 fL (80.0-100.0); Mean Platelet Volume 8.8; Monocytes # (A) 0.5 k/uL (0-1.0); Monocytes % (A) 9 %; Neutrophils # (A) 4.1 k/uL (1.3-7.7); Neutrophils % (A) 67 %; Platelet Count 113 k/uL (150-450); RBC 3.76 m/uL (4.30-5.90); RDW 16.8 % (11.5-15.5); WBC 6.2 k/uL (3.8-10.6)
[2019-12-17 16:56] LABS: Hemoglobin A1C 6.1 % (4.0-6.0)
[2019-12-17 18:33] LABS: African American GFR (CKD) 50.6 (60.0-200.0); Anion Gap 11.8 mmol/L (4.00-12.00); Calcium 9.1 mg/dL (8.7-10.3); Carbon Dioxide 19.2 mmol/L (21.6-31.8); Chol/HDL Ratio 1.88; Magnesium 2.1 mg/dL (1.5-2.4); Non-African American GFR(CKD) 43.7 (60.0-200.0); Potassium 4.9 mmol/L (3.5-5.5)
== END | disposition home or self-care (01) ==
LOC: LABWHC1 08:51
PROVIDERS: ATTEND Internal Medicine
DX: E11.9 Type 2 diabetes mellitus without complications (principal)
CPT/HCPCS: 36415; 80048; 80061; 82550; 83036; 83735; 84443; 84450; 84460; 85025

== ENCOUNTER → 2020-02-03 | Outpatient (CLI) | payer MEDICARE ==
[2020-02-03 17:01] LABS: Anisocytosis Slight; Basophils % (A) 0 %; Eosinophils # (A) 0.3 k/uL (0-0.7); Eosinophils % (A) 4 %; HCT 37.3 % (39.0-53.0); HGB 11.9 gm/dL (13.0-17.5); Lymphocytes # (A) 2.2 k/uL (1.0-4.8); Lymphocytes % (A) 31 %; MCHC 31.9 g/dL (31.0-37.0); MCV 94.1 fL (80.0-100.0); Mean Platelet Volume 8.7; Monocytes # (A) 0.5 k/uL (0-1.0); Monocytes % (A) 7 %; Neutrophils % (A) 55 %; Platelet Count 102 k/uL (150-450); RBC 3.97 m/uL (4.30-5.90); RDW 16.1 % (11.5-15.5); WBC 7.3 k/uL (3.8-10.6)
[2020-02-04 01:23] LABS: African American GFR (CKD) 33.7 (60.0-200.0); Albumin 4.7 g/dL (3.80-4.90); Anion Gap 11.4 mmol/L (4.00-12.00); BUN/Creat Ratio 31.43 Ratio (12.00-20.00); Calcium 9.3 mg/dL (8.7-10.3); Carbon Dioxide 19.6 mmol/L (21.6-31.8); Magnesium 2.2 mg/dL (1.5-2.4); Non-African American GFR(CKD) 29.1 (60.0-200.0); Phosphorus 4.6 mg/dL (2.4-5.1); Potassium 4.9 mmol/L (3.5-5.5)
== END | disposition home or self-care (01) ==
LOC: LABWHC1 15:32
PROVIDERS: ATTEND Internal Medicine Nephrology
DX: N18.30 Chronic kidney disease, stage 3 unspecified (principal); E83.9 Disorder of mineral metabolism, unspecified; M89.9 Disorder of bone, unspecified; D63.1 Anemia in chronic kidney disease
CPT/HCPCS: 36415; 80069; 83735; 83970; 85025

== ENCOUNTER → 2020-02-16 | Outpatient (CLI) | payer MEDICARE ==
[2020-02-16 18:44] LABS: African American GFR (CKD) 31.8 (60.0-200.0); Albumin 4.5 g/dL (3.80-4.90); Anion Gap 9.4 mmol/L (4.00-12.00); BUN/Creat Ratio 28.64 Ratio (12.00-20.00); Calcium 9.4 mg/dL (8.7-10.3); Carbon Dioxide 22.6 mmol/L (21.6-31.8); Non-African American GFR(CKD) 27.5 (60.0-200.0); Phosphorus 5.1 mg/dL (2.4-5.1)
== END | disposition home or self-care (01) ==
LOC: LABWHC1 13:49
PROVIDERS: ATTEND Internal Medicine Nephrology
DX: E83.9 Disorder of mineral metabolism, unspecified (principal); N18.9 Chronic kidney disease, unspecified; M89.9 Disorder of bone, unspecified
CPT/HCPCS: 36415; 80069

== ENCOUNTER 2020-02-27 02:00 | Observation (INO) | payer MEDICARE ==
[2020-02-27 02:52] LABS: Albumin 4.7 g/dL (3.5-5.0); Calcium 9.2 mg/dL (8.4-10.2); Potassium 4.7 mmol/L (3.5-5.1); Total Bilirubin 0.6 mg/dL (0.2-1.3); Total Protein 7.8 g/dL (6.3-8.2)
--- NOTE | 2020-02-27 03:00 | XR ---
EXAM: XR Chest, 2 Views CLINICAL HISTORY: ITS.REASON XR Reason: hypertension TECHNIQUE: Frontal and lateral views of the chest. COMPARISON: 10/28/19. FINDINGS: Lungs: Patchy bilateral lung opacities, more prominent in the lower lungs. Pleural space: No significant pleural effusion or pneumothorax. Heart: Stable enlarged cardiomediastinal silhouette. Mediastinum: See above. Bones/joints: Spinal hardware noted. IMPRESSION: Patchy bilateral lung opacities, possible atelectasis/scarring. Correlate clinically regarding developing infiltrate or edema.
[2020-02-27 03:18] LABS: Anisocytosis Slight; Basophils % (A) 0 %; Eosinophils # (A) 0.2 k/uL (0-0.7); Eosinophils % (A) 2 %; HCT 37.4 % (39.0-53.0); Lymphocytes # (A) 2.1 k/uL (1.0-4.8); Lymphocytes % (A) 26 %; MCH 29.3 pg (25.0-35.0); MCHC 32.1 g/dL (31.0-37.0); MCV 91.1 fL (80.0-100.0); Monocytes # (A) 0.7 k/uL (0-1.0); Monocytes % (A) 9 %; Neutrophils # (A) 4.8 k/uL (1.3-7.7); Neutrophils % (A) 60 %; Platelet Count 113 k/uL (150-450)
[2020-02-27] MEDS ORDERED: HEPARIN SODIUM,PORCINE 5,000 UNIT/ML 1 ML VIAL IV ONE (04:03)
[2020-02-27] MEDS ORDERED: HEPARIN SODIUM,PORCINE 5,000 UNIT/ML 1 ML VIAL IV PRN (04:03)
[2020-02-27] MEDS ORDERED: HEPARIN SOD,PORK IN 0.45% NACL 25,000 UNIT in 0.45% NACL 1 250ML.BAG IV SCH (04:15)
[2020-02-27] MEDS ORDERED: NITROGLYCERIN SL TABS 0.4 MG TAB SUBLINGUAL PRN (04:40)
[2020-02-27] MEDS: SODIUM CHLORIDE 0.9% 1,000 ML IV SCH (04:50)
[2020-02-27 05:31] LABS: INR 1.2 (<1.2); Partial Thromboplastin Time 27.5 sec (22.0-30.0); Prothrombin Time 12.1 sec (9.0-12.0)
--- NOTE | 2020-02-27 05:40 | ED ---
Arrhythmia/Palpitations HPI - General Chief Complaint: Arrhythmia/Palpitations Stated Complaint: Tachycardia Time Seen by Provider: 02/27/20 02:10 Source: patient Mode of arrival: wheelchair Limitations: no limitations - History of Present Illness Initial Comments: This patient is a 79-year-old man who presents here to be evaluated for tachycardia and hypertension. The patient takes his vital signs at home and tonight found that his heart rate was elevated blood pressure was well above usual for him. The patient called cardiology on-call number and was instructed taken a dose of his sotalol. He then waited about an hour and rechecked and found that his heart rate was still elevated and he was still hypertensive. He called for advice again and the investigation division sergeant recommended him to be seen in the emergency department. Patient did feel a little anxious but otherwise is denying symptoms. No chest pain, dyspnea, diaphoresis, nausea or vomiting. MD Complaint: rapid heart beat -: hour(s) Context: occurred during rest Arrhythmia History: pacemaker, AICD Associated Symptoms: denies other symptoms - Related Data Home Medications Medication Instructions Recorded Confirmed ALPRAZolam [Xanax] 0.5 mg PO TID PRN 12/19/16 02/27/20 Nitroglycerin 0.4 mg PO Q5M PRN 12/19/16 02/27/20 Aspirin [Adult Low Dose Aspirin EC] 81 mg PO DAILY 02/23/19 02/27/20 Levothyroxine Sodium [Synthroid] 88 mcg PO QAM 02/23/19 02/27/20 Acetaminophen [Tylenol] 1,000 mg PO Q4-6H PRN 02/27/20 02/27/20 Docusate [Colace] 100 mg PO BID 02/27/20 02/27/20 Fenofibrate Nanocrystallized 48 mg PO DAILY 02/27/20 02/27/20 [Fenofibrate] Finasteride [Proscar] 5 mg PO DAILY 02/27/20 02/27/20 Glimepiride [Amaryl] 4 mg PO DAILY 02/27/20 02/27/20 Isosorbide Mononitrate ER [Imdur] 30 mg PO DAILY 02/27/20 02/27/20 Rosuvastatin Calcium [Crestor] 20 mg PO DAILY 02/27/20 02/27/20 Sotalol [Betapace] 40 mg PO HS 02/27/20 02/27/20 Sotalol [Betapace] 80 mg PO QAM 02/27/20 02/27/20 Torsemide [Demadex] 20 mg PO BID 02/27/20 02/27/20 lisinopriL [Zestril] 5 mg PO DAILY 02/27/20 02/27/20 Allergies Allergy/AdvReac Type Severity Reaction Status Date / Time No Known Allergies Allergy Verified 02/27/20 09:27 Review of Systems ROS Statement: Those systems with pertinent positive or pertinent negative responses have been documented in the HPI. ROS Other: All systems not noted in ROS Statement are negative. Constitutional: Reports: weakness. Denies: fever, chills Respiratory: Denies: cough, dyspnea, wheezes Cardiovascular: Reports: palpitations. Denies: chest pain, orthopnea, edema, syncope Gastrointestinal: Denies: abdominal pain, nausea, vomiting Genitourinary: Denies: dysuria Musculoskeletal: Denies: back pain Skin: Denies: rash Neurological: Denies: headache, weakness, numbness Psychiatric: Reports: anxiety Past Medical History Past Medical History: Diabetes Mellitus, Hyperlipidemia, Hypertension Additional Past Medical History / Comment(s): bladder CA, History of Any Multi-Drug Resistant Organisms: None Reported Past Surgical History: Appendectomy, Coronary Bypass/CABG, Heart Catheterization With Stent, Pacemaker Additional Past Surgical History / Comment(s): stents in right leg Past Psychological History: No Psychological Hx Reported Smoking Status: Never smoker Past Alcohol Use History: None Reported Past Drug Use History: None Reported - Past Family History Brother(s) Additional Family Medical History / Comment(s): prostate ca Father Additional Family Medical History / Comment(s): cancer- unknown General Exam Limitations: no limitations General appearance: alert, in no apparent distress Head exam: Present: atraumatic, normocephalic Eye exam: Present: normal appearance. Absent: scleral icterus, conjunctival injection ENT exam: Present: normal oropharynx Respiratory exam: Present: normal lung sounds bilaterally. Absent: respiratory distress, wheezes, rales, rhonchi, stridor Cardiovascular Exam: Present: regular rate, normal rhythm, normal heart sounds. Absent: systolic murmur, diastolic murmur, rubs, gallop GI/Abdominal exam: Present: soft. Absent: distended, tenderness, guarding, rebound, rigid, mass Extremities exam: Present: normal inspection, normal capillary refill. Absent: pedal edema, calf tenderness Back exam: Present: normal inspection. Absent: CVA tenderness (R), CVA tenderness (L) Neurological exam: Present: alert Skin exam: Present: warm, dry, intact, normal color. Absent: rash Course Vital Signs 02/27/20 02/27/20 02/27/20 02:03 03:00 04:00 Temperature 97.6 F Pulse Rate 68 60 61 Pulse Rate [ Pulse Oximetery ] Respiratory 18 16 16 Rate Blood Pressure 159/74 114/62 107/75 Blood Pressure [Right Arm] O2 Sat by Pulse 99 97 97 Oximetry 02/27/20 02/27/20 02/27/20 05:00 06:00 09:10 Temperature 98.2 F Pulse Rate 60 61 60 Pulse Rate [ Pulse Oximetery ] Respiratory 16 16 Rate Blood Pressure 115/66 107/62 123/75 Blood Pressure [Right Arm] O2 Sat by Pulse 97 98 96 Oximetry 02/27/20 02/27/20 02/27/20 10:00 12:00 14:00 Temperature 98.2 F 98.0 F Pulse Rate 61 Pulse Rate [ 61 61 Pulse Oximetery ] Respiratory 16 18 18 Rate Blood Pressure 132/67 Blood Pressure 150/66 143/84 [Right Arm] O2 Sat by Pulse 99 99 98 Oximetry Medical Decision Making - Lab Data Result diagrams: 02/28/20 07:52 02/28/20 07:52 Lab Results 02/27/20 02/27/20 02/27/20 Range/Units 02:12 02:12 02:33 WBC 8.0 (3.8-10.6) k/uL RBC 4.10 L (4.30-5.90) m/uL Hgb 12.0 L (13.0-17.5) gm/dL Hct 37.4 L (39.0-53.0) % MCV 91.1 (80.0-100.0) fL MCH 29.3 (25.0-35.0) pg MCHC 32.1 (31.0-37.0) g/dL RDW 16.0 H (11.5-15.5) % Plt Count 113 L (150-450) k/uL MPV 9.0 Neutrophils % 60 % Lymphocytes % 26 % Monocytes % 9 % Eosinophils % 2 % Basophils % 0 % Neutrophils # 4.8 (1.3-7.7) k/uL Lymphocytes # 2.1 (1.0-4.8) k/uL Monocytes # 0.7 (0-1.0) k/uL Eosinophils # 0.2 (0-0.7) k/uL Basophils # 0.0 (0-0.2) k/uL Anisocytosis Slight Sodium 136 L (137-145) mmol/L Potassium 4.7 (3.5-5.1) mmol/L Chloride 106 (98-107) mmol/L Carbon Dioxide 22 (22-30) mmol/L Anion Gap 8 mmol/L BUN 56 H (9-20) mg/dL Creatinine 1.65 H (0.66-1.25) mg/dL Est GFR (CKD-EPI)AfAm 45 (>60 ml/min/1.73 sqM) Est GFR (CKD-EPI)NonAf 39 (>60 ml/min/1.73 sqM) Glucose 157 H (74-99) mg/dL Calcium 9.2 (8.4-10.2) mg/dL Total Bilirubin 0.6 (0.2-1.3) mg/dL AST 97 H (17-59) U/L ALT 103 H (4-49) U/L Alkaline Phosphatase 104 (38-126) U/L Troponin I 0.419 H* (0.000-0.034) ng/mL Total Protein 7.8 (6.3-8.2) g/dL Albumin 4.7 (3.5-5.0) g/dL - EKG Data -: EKG Interpreted by Co EKG shows normal: axis (Device), QRS complexes (Bundle-branch block) Interpretation: other (Lying rhythm appears to be atrial paced rhythm, rate 63 bpm) Disposition Clinical Impression: Elevated troponin, Hypertension, Tachycardia Disposition: ADMITTED IP TO THIS HOSP Condition: Fair
[2020-02-27] MEDS: LEVOTHYROXINE 88 MCG TAB PO SCH (06:03)
--- NOTE | 2020-02-27 07:19 | P.HPIM ---
History of Present Illness H&P Date: 02/27/20 Chief Complaint: tachycardia, elevated blood pressure 79-year-old male with coronary artery disease Patient comes in due to tachycardia arrhythmia and hypertension. He is c urrently at his baseline status of health however at night he felt his heart racing checked his heartrate and was in the 120s with blood pressure slightly elevated he called his brush clearer surveying who recommended to take an extra dose of sotalol, this has brought his heart rate down to the low 110s about an hour later he followed up with his brush clearer surveying sock ironer who recommended that he goes to the hospital for evaluation. Otherwise patient denies any associated trouble breathing or chest pain he denie s any diaphoresis nausea vomiting denies any loss of consciousness or syncope or near-syncope. Patient also denies any upper respiratory infection like symptoms or any sick contacts he denies any abdominal pain nausea vomiting changes in his bowel or urinary habits. Patient tells me about recent history of stroke after valve replacement back in May. Patient also has history of CABG back in 1993 followed by an event of arrhythmia and 2013 for which she had his defibrillator installed In the ED he was found to have slightly elevated troponins for which she was admitted for cardiac workup and rule out acute coronary syndrome Review of Systems Pertinent positives as noted in HPI. All other systems were reviewed and are negative Past Medical History Past Medical History: Diabetes Mellitus, Hyperlipidemia, Hypertension Additional Past Medical History / Comment(s): bladder CA, History of Any Multi-Drug Resistant Organisms: None Reported Past Surgical History: Appendectomy, Coronary Bypass/CABG, Heart Catheterization With Stent, Pacemaker Additional Past Surgical History / Comment(s): stents in right leg Past Psychological History: No Psychological Hx Reported Smoking Status: Never smoker Past Alcohol Use History: None Reported Past Drug Use History: None Reported Medications and Allergies Home Medications Medication Instructions Recorded Confirmed Type ALPRAZolam [Xanax] 0.5 mg PO HS 12/19/16 02/23/19 History Cholecalciferol (Vitamin D3) 2,000 unit PO W/SUPPER 12/19/16 02/23/19 History [Vitamin D3] Cinnamon Bark [Cinnamon] 1,000 mg PO DAILY 12/19/16 02/23/19 History Clopidogrel [Plavix] 75 mg PO W/LUNCH 12/19/16 02/23/19 History Fenofibrate 160 mg PO W/LUNCH 12/19/16 02/23/19 History Ferrous Sulfate [Feosol] 325 mg PO W/LUNCH 12/19/16 02/23/19 History Fish Oil/Dha/Epa [Fish Oil 1,200 1 cap PO AC-BID 12/19/16 02/23/19 History mg Fish Oil] Glimepiride [Amaryl] 2 mg PO AC-LUNCH 12/19/16 02/23/19 History Metoprolol Succinate [Toprol XL] 50 mg PO BID 12/19/16 02/23/19 History Multivitamins, Thera [Multivitamin 1 tab PO W/SUPPER 12/19/16 02/23/19 History (formulary)] Nitroglycerin 0.4 mg PO Q5M PRN 12/19/16 02/23/19 History Terazosin HCl 10 mg PO HS 12/19/16 02/23/19 History lisinopriL [Lisinopril] 40 mg PO W/LUNCH 12/19/16 02/23/19 History Ascorbic Acid [Vitamin C] 1,000 mg PO DAILY 02/23/19 02/23/19 History Aspirin [Adult Low Dose Aspirin EC] 81 mg PO DAILY 02/23/19 02/23/19 History Levothyroxine Sodium [Synthroid] 88 mcg PO QAM 02/23/19 02/23/19 History Rosuvastatin [Crestor] 20 mg PO HS 02/23/19 02/23/19 History Ubidecarenone [Co Q-10] 100 mg PO DAILY 02/23/19 02/23/19 History metFORMIN HCL [Glucophage] 1,000 mg PO AC-LUNCH 02/23/19 02/23/19 History metFORMIN HCL [Glucophage] 1,000 mg PO AC-SUPPER 02/23/19 02/23/19 History metFORMIN HCL [Glucophage] 500 mg PO AC-BRKFST 02/23/19 02/23/19 History Allergies Allergy/AdvReac Type Severity Reaction Status Date / Time No Known Allergies Allergy Verified 02/27/20 02:07 Physical Exam Vitals: Vital Signs Temp Pulse Resp BP Pulse Ox 02/27/20 06:00 98.2 F 61 107/62 98 02/27/20 05:00 60 16 115/66 97 02/27/20 04:00 61 16 107/75 97 02/27/20 03:00 60 16 114/62 97 02/27/20 02:03 97.6 F 68 18 159/74 99 Intake and Output 02/26/20 02/26/20 02/27/20 14:59 22:59 06:59 Other: Weight 77.111 kg Constitutional: No acute distress, conversant, pleasant Eyes: Anicteric sclerae, moist conjunctiva, Pupils equal round reactive to light ENMT: NC/AT Oropharynx clear, no erythema, or exudates Neck: Supple, FROM, no masses, or JVD No carotid bruits No thyromegaly Lungs: Clear to auscultation Clear to percussion Normal respiratory effort, no accessory muscle use Cardiovascular: Heart regular in rate and rhythm, No murmurs, gallops, or rubs No peripheral edema Abdominal: Soft Nontender, no guarding, rebound or rigidity Abdomen moving with respiration Normoactive bowel sounds No hepatomegaly, No splenomegaly No palpable mass No abdominal wall hernia noted Skin: Normal temperature, tone, texture, turgor No induration No subcutaneous nodules No rash, lesions No ulcers Extremities: No digital cyanosis No clubbing Pedal pulses intact and symmetrical Radial pulses intact and symmetrical No calf tenderness Psychiatric: Alert and oriented to person, place and time Appropriate affect fair judgement Neuro Muscles Strength 4/5 in all 4 extremities Sensation to light touch grossly present throughout Cranial nerves II-XII grossly intact No focal sensory deficits Lymphatics: no palpable cervical or supraclavicular , or inguinal lymph nodes Results CBC & Chem 7: 02/27/20 02:33 02/27/20 02:12 Labs: Abnormal Lab Results - Last 24 Hours (Table) 02/27/20 02/27/20 02/27/20 Range/Units 02:12 02:12 02:33 RBC 4.10 L (4.30-5.90) m/uL Hgb 12.0 L (13.0-17.5) gm/dL Hct 37.4 L (39.0-53.0) % RDW 16.0 H (11.5-15.5) % Plt Count 113 L (150-450) k/uL PT (9.0-12.0) sec INR (<1.2) Sodium 136 L (137-145) mmol/L BUN 56 H (9-20) mg/dL Creatinine 1.65 H (0.66-1.25) mg/dL Glucose 157 H (74-99) mg/dL AST 97 H (17-59) U/L ALT 103 H (4-49) U/L Troponin I 0.419 H* (0.000-0.034) ng/mL 02/27/20 Range/Units 04:53 RBC (4.30-5.90) m/uL Hgb (13.0-17.5) gm/dL Hct (39.0-53.0) % RDW (11.5-15.5) % Plt Count (150-450) k/uL PT 12.1 H (9.0-12.0) sec INR 1.2 H (<1.2) Sodium (137-145) mmol/L BUN (9-20) mg/dL Creatinine (0.66-1.25) mg/dL Glucose (74-99) mg/dL AST (17-59) U/L ALT (4-49) U/L Troponin I (0.000-0.034) ng/mL Assessment and Plan Assessment: NSTEMI, vs chronically elevated trops due to CKD history of CAD s/p pacemaker/defib trend trops heparin gtt cardiology consult pain control resume cardiac meds elevated trops could be 2/2 CKD CKD avoid nephrotoxic meds monitor renal function and urine output DM insulin sliding scale hypertension resume cardiac meds hypothyroidism levothyroxin CODE STATUS:full code DVT prophylaxis: heparin drip for ACS Discussed with: Patient, ER Anticipated length of stay < than [address]: home A total of 65 minutes was spent on the care of this complex patient more than 50% of the time was spent in counseling and care coordination.
[2020-02-27] MEDS ORDERED: metFORMIN 500 MG TAB PO SCH ×3 (07:30→17:30)
[2020-02-27 08:07] LABS: Glucose,Whole Blood 56 mg/dL (75-99)
[2020-02-27 08:29] LABS: Glucose,Whole Blood 98 mg/dL (75-99)
[2020-02-27] MEDS ORDERED: NON FORMULARY DRUG (Ubidecarenone [Co Q-10] 100 MG Capsule) PO SCH (09:00)
[2020-02-27] MEDS ORDERED: METOPROLOL SUCCINATE (ER) 50 MG TAB.ER.24H PO SCH (09:00)
[2020-02-27] MEDS: INSULIN ASPART (NovoLOG) 100 UNIT/ML VIAL SQ SCH ×4 (09:04→21:59)
[2020-02-27] MEDS: ASPIRIN 81 MG PO SCH (09:42)
[2020-02-27] MEDS: SOTALOL 80 MG TAB PO SCH (10:02)
[2020-02-27] MEDS ORDERED: ACETAMINOPHEN TAB 500 MG TAB PO PRN (12:15)
[2020-02-27] MEDS ORDERED: NON FORMULARY DRUG (Rosuvastatin Calcium [Crestor] 40 MG Tablet) PO SCH (12:30)
[2020-02-27] MEDS ORDERED: lisinopriL 20 MG TAB PO SCH (12:30)
[2020-02-27] MEDS ORDERED: GLIMEPIRIDE 2 MG TAB PO SCH (12:30)
[2020-02-27] MEDS ORDERED: FENOFIBRATE 160 MG TAB PO SCH (12:30)
--- NOTE | 2020-02-27 14:12 | P.CRDCN ---
History of Present Illness Consult date: 02/27/20 History of present illness: CHIEF COMPLAINT: Elevated troponin HISTORY OF PRESENT ILLNESS: This is a 79-year old male with a past medical history significant for coronary artery disease with previous CABG, hypertension, hyperlipidemia, aortic valve replacement, CVA, and pacemaker insertion. Patient follows with a entry level programmer out of [place]. We have been asked to see the patient in consultation for elevated troponin. Patient examined this morning in the emergency room. Patient states he was having some palpitations yesterday at home. He checked his vital signs and noticed his heart rate to be elevated. He called his entry level programmer who told him to take an extra 40 mg of sotalol. The patient states he rechecked his heart rate about an hour and half later and it was improved but still elevated so he came to the ergency room for further evaluation. The patient denies any chest pain or pressure. He denies shortness of breath. Currently denies palpitations. Pacemaker interrogation completed in the emergency room did not reveal any evidence of atrial fibrillation. Pacemaker set to detect atrial fibrillation over rate of 133. DIAGNOSTICS: EKG reveals atrial paced rhythm Chest xray patchy bilateral lung opacities, possible atelectasis/scarring Laboratory data: WBC 8.0. Hemoglobin 12.0. Platelet count 113. Sodium 136. Potassium 4.7. BUN 56. Creatinine 1.65. Troponin 0.419. 0.837. 0.959 Current home cardiac medications include lisinopril 5 mg daily, sotalol 80 mg in the morning and 40mg at night, Demadex 20 mg twice a day, Crestor 20 mg daily, hydralazine 25 mg 3 times a day, Imdur 30mg daily, aspirin 81 mg daily REVIEW OF SYSTEMS: At the time of my exam: CONSTITUTIONAL: Denies fever or chills. HEENT: Denies blurred vision, vision changes, or eye pain. Denies hemoptysis CARDIOVASCULAR: Denies chest pain, orthopnea, PND or palpitations RESPIRATORY: No shortness of breath. GASTROINTESTINAL: Denies abdominal pain. Denies nausea or vomiting. HEMATOLOGIC: Denies bleeding disorders. GENITOURINARY: Denies any blood in urine. SKIN: Denies pruitis. Denies rash. PHYSICAL EXAM: VITAL SIGNS: Reviewed. GENERAL: Well-developed in no acute distress. HEENT: Head is normocephalic. Pupils are equal, round. Sclerae anicteric. Mucous membranes of the mouth are moist. Neck supple. No JVD or thyromegaly LUNGS: Respirations even and unlabored. Lungs essentially clear to auscultation bilaterally. HEART: Regular rate and rhythm. S1 and S2 heard. ABDOMEN: Soft. Nondistended. Nontender. EXTREMITIES: Normal range of motion. No clubbing or cyanosis. Peripheral pulses intact. No lower extremity edema NEUROLOGIC: Awake and alert. Oriented x 3. 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 Signing provider agrees with the documented findings, assessment, and plan of care. Past Medical History Past Medical History: Diabetes Mellitus, Hyperlipidemia, Hypertension Additional Past Medical History / Comment(s): bladder CA, History of Any Multi-Drug Resistant Organisms: None Reported Past Surgical History: Appendectomy, Coronary Bypass/CABG, Heart Catheterization With Stent, Pacemaker Additional Past Surgical History / Comment(s): stents in right leg Past Psychological History: No Psychological Hx Reported Smoking Status: Never smoker Past Alcohol Use History: None Reported Past Drug Use History: None Reported Medications and Allergies Home Medications Medication Instructions Recorded Confirmed Type ALPRAZolam [Xanax] 0.5 mg PO TID PRN 12/19/16 02/27/20 History Nitroglycerin 0.4 mg PO Q5M PRN 12/19/16 02/27/20 History Aspirin [Adult Low Dose Aspirin EC] 81 mg PO DAILY 02/23/19 02/27/20 History Levothyroxine Sodium [Synthroid] 88 mcg PO QAM 02/23/19 02/27/20 History Acetaminophen [Tylenol] 1,000 mg PO Q4-6H PRN 02/27/20 02/27/20 History Docusate [Colace] 100 mg PO BID 02/27/20 02/27/20 History Fenofibrate Nanocrystallized 48 mg PO DAILY 02/27/20 02/27/20 History [Fenofibrate] Finasteride [Proscar] 5 mg PO DAILY 02/27/20 02/27/20 History Glimepiride [Amaryl] 4 mg PO DAILY 02/27/20 02/27/20 History Isosorbide Mononitrate ER [Imdur] 30 mg PO DAILY 02/27/20 02/27/20 History Rosuvastatin Calcium [Crestor] 20 mg PO DAILY 02/27/20 02/27/20 History Sotalol [Betapace] 40 mg PO HS 02/27/20 02/27/20 History Sotalol [Betapace] 80 mg PO QAM 02/27/20 02/27/20 History Torsemide [Demadex] 20 mg PO BID 02/27/20 02/27/20 History hydrALAZINE HCL 25 mg PO TID 02/27/20 02/27/20 History lisinopriL [Zestril] 5 mg PO DAILY 02/27/20 02/27/20 History Allergies Allergy/AdvReac Type Severity Reaction Status Date / Time No Known Allergies Allergy Verified 02/27/20 09:27 Physical Exam Vitals: Vital Signs Temp Pulse Resp BP Pulse Ox 02/27/20 10:00 61 16 132/67 99 02/27/20 09:10 60 16 123/75 96 02/27/20 06:00 98.2 F 61 107/62 98 02/27/20 05:00 60 16 115/66 97 02/27/20 04:00 61 16 107/75 97 02/27/20 03:00 60 16 114/62 97 02/27/20 02:03 97.6 F 68 18 159/74 99 Intake and Output 02/26/20 02/27/20 02/27/20 22:59 06:59 14:59 Intake Total 78.651 Balance 78.651 Intake: Intake, IV Titration 78.651 Amount Heparin Sod,Pork in 0.45% 78.651 NaCl 25,000 unit In 0.45 % NaCl 1 250ml.bag @ 12 UNITS/KG/HR 9.253 mls/hr IV .Q24H [facility] Rx#: [id number] Other: Weight 77.111 kg Results 02/27/20 02:33 02/27/20 02:12 Cardiac Enzymes 02/27/20 02/27/20 02/27/20 Range/Units 02:12 02:12 05:24 AST 97 H (17-59) U/L Troponin I 0.419 H* 0.837 H* (0.000-0.034) ng/mL 02/27/20 Range/Units 08:15 AST (17-59) U/L Troponin I 0.959 H* (0.000-0.034) ng/mL Coagulation 02/27/20 02/27/20 Range/Units 04:53 11:12 PT 12.1 H (9.0-12.0) sec APTT 27.5 70.4 H (22.0-30.0) sec CBC 02/27/20 Range/Units 02:33 WBC 8.0 (3.8-10.6) k/uL RBC 4.10 L (4.30-5.90) m/uL Hgb 12.0 L (13.0-17.5) gm/dL Hct 37.4 L (39.0-53.0) % Plt Count 113 L (150-450) k/uL Comprehensive Metabolic Panel 02/27/20 Range/Units 02:12 Sodium 136 L (137-145) mmol/L Potassium 4.7 (3.5-5.1) mmol/L Chloride 106 (98-107) mmol/L Carbon Dioxide 22 (22-30) mmol/L BUN 56 H (9-20) mg/dL Creatinine 1.65 H (0.66-1.25) mg/dL Glucose 157 H (74-99) mg/dL Calcium 9.2 (8.4-10.2) mg/dL AST 97 H (17-59) U/L ALT 103 H (4-49) U/L Alkaline Phosphatase 104 (38-126) U/L Total Protein 7.8 (6.3-8.2) g/dL Albumin 4.7 (3.5-5.0) g/dL Current Medications Generic Name Dose Route Start Last Admin Trade Name Freq PRN Reason Stop Dose Admin Acetaminophen 1,000 mg 02/27/20 12:15 Acetaminophen Tab 500 Mg Tab PO Q4H PRN Pain or Fever > 100.5 Alprazolam 0.5 mg 02/27/20 21:00 Alprazolam 0.5 Mg Tab PO HS [facility] Aspirin 81 mg 02/27/20 09:00 02/27/20 09:42 Aspirin 81 Mg PO 81 mg DAILY [facility] Administration Atorvastatin Calcium 40 mg 02/27/20 21:00 Atorvastatin 40 Mg Tab PO HS [facility] Clopidogrel Bisulfate 75 mg 02/27/20 12:30 Clopidogrel 75 Mg Tab PO W/LUNCH [facility] Docusate Sodium 100 mg 02/27/20 21:00 Docusate 100 Mg Cap PO BID [facility] Doxazosin Mesylate 8 mg 02/27/20 21:00 Doxazosin 4 Mg Tab PO HS [facility] Fenofibrate 54 mg 02/28/20 09:00 Fenofibrate 54 Mg Tab PO DAILY [facility] Ferrous Sulfate 325 mg 02/27/20 12:30 Ferrous Sulfate 325 Mg Tab PO W/LUNCH [facility] Finasteride 5 mg 02/27/20 12:15 Finasteride 5 Mg Tab PO DAILY [facility] Heparin Sodium (Porcine) 0 unit 02/27/20 04:03 Heparin Sodium,Porcine 5,000 Unit/Ml 1 Ml Vial IV PER PROTOCOL PRN Low PTT Protocol Hydralazine HCl 25 mg 02/27/20 16:00 Hydralazine Hcl 25 Mg Tab PO TID [facility] Heparin Sodium/Sodium Chloride 250 mls @ 9.253 mls/hr 02/27/20 04:15 02/27/20 13:21 25,000 unit/ Sodium Chloride IV 10 units/kg/hr .Q24H [facility] 7.711 mls/hr Titration Protocol 12 UNITS/KG/HR Sodium Chloride 1,000 mls @ 20 mls/hr 02/27/20 04:45 02/27/20 04:50 Saline 0.9% IV 20 mls/hr .Q24H [facility] Administration Insulin Aspart 0 unit 02/27/20 07:30 02/27/20 09:04 Insulin Aspart (Novolog) 100 Unit/Ml Vial SQ Not Given ACHS [facility] Protocol Isosorbide Mononitrate 30 mg 02/27/20 12:30 Isosorbide Mononitrate Er 30 Mg Tab.Er.24h PO DAILY [facility] Levothyroxine Sodium 88 mcg 02/27/20 06:30 02/27/20 06:03 Levothyroxine 88 Mcg Tab PO 88 mcg DAILY@0630 [facility] Administration Lisinopril 40 mg 02/27/20 12:30 Lisinopril 20 Mg Tab PO W/LUNCH [facility] Lisinopril 5 mg 02/27/20 12:30 Lisinopril 5 Mg Tab PO DAILY [facility] Nitroglycerin 0.4 mg 02/27/20 04:40 Nitroglycerin Sl Tabs 0.4 Mg Tab SUBLINGUAL Q5M PRN Chest Pain Sotalol HCl 80 mg 02/27/20 09:45 02/27/20 10:02 Sotalol 80 Mg Tab PO 80 mg QAM [facility] Administration Sotalol HCl 40 mg 02/27/20 21:00 Sotalol 80 Mg Tab PO HS [facility] Torsemide 20 mg 02/27/20 21:00 Torsemide 20 Mg Tab PO BID [facility] Intake and Output 02/26/20 02/27/20 02/27/20 22:59 06:59 14:59 Intake Total 78.651 Balance 78.651 Intake: Intake, IV Titration 78.651 Amount Heparin Sod,Pork in 0.45% 78.651 NaCl 25,000 unit In 0.45 % NaCl 1 250ml.bag @ 12 UNITS/KG/HR 9.253 mls/hr IV .Q24H [facility] Rx#: [id number] Other: Weight 77.111 kg 02/27/20 02:33 02/27/20 02:12
[2020-02-27 14:32] LABS: Glucose,Whole Blood 134 mg/dL (75-99)
[2020-02-27] MEDS: ISOSORBIDE MONONITRATE ER 30 MG TAB.ER.24H PO SCH (14:34)
[2020-02-27] MEDS: FINASTERIDE 5 MG TAB PO SCH (14:34)
[2020-02-27] MEDS: lisinopriL 5 MG TAB PO SCH (14:34)
[2020-02-27] MEDS: FERROUS SULFATE 325 MG TAB PO SCH (14:36)
[2020-02-27] MEDS: CLOPIDOGREL 75 MG TAB PO SCH (14:36)
[2020-02-27] MEDS: hydrALAZINE HCL 25 MG TAB PO SCH ×2 (16:11→22:00)
[2020-02-27 16:51] LABS: Glucose,Whole Blood 96 mg/dL (75-99)
[2020-02-27 20:12] LABS: Glucose,Whole Blood 197 mg/dL (75-99)
[2020-02-27] MEDS: DOCUSATE 100 MG CAP PO SCH (20:14)
[2020-02-27] MEDS ORDERED: TORSEMIDE 20 MG TAB PO SCH (21:00)
[2020-02-27] MEDS ORDERED: ATORVASTATIN 40 MG TAB PO SCH (21:00)
[2020-02-27] MEDS ORDERED: SOTALOL 80 MG TAB PO SCH (21:00)
[2020-02-27] MEDS ORDERED: DOXAZOSIN 4 MG TAB PO SCH (21:00)
[2020-02-27] MEDS ORDERED: ALPRAZolam 0.5 MG TAB PO SCH (21:00)
[2020-02-28 05:01] VITALS: PULSE 60
[2020-02-28] MEDS: LEVOTHYROXINE 88 MCG TAB PO SCH (05:48)
[2020-02-28] MEDS: SODIUM CHLORIDE 0.9% 1,000 ML IV SCH (05:49)
[2020-02-28 05:56] LABS: Glucose,Whole Blood 106 mg/dL (75-99)
[2020-02-28] MEDS: INSULIN ASPART (NovoLOG) 100 UNIT/ML VIAL SQ SCH ×2 (06:27→12:39)
[2020-02-28 08:21] LABS: Anisocytosis Slight; Basophils % (A) 0 %; Eosinophils # (A) 0.1 k/uL (0-0.7); Eosinophils % (A) 3 %; HCT 34.2 % (39.0-53.0); Lymphocytes # (A) 1.5 k/uL (1.0-4.8); Lymphocytes % (A) 32 %; MCH 29.8 pg (25.0-35.0); MCV 93.1 fL (80.0-100.0); Monocytes # (A) 0.3 k/uL (0-1.0); Monocytes % (A) 6 %; Neutrophils # (A) 2.7 k/uL (1.3-7.7); Neutrophils % (A) 56 %; RBC 3.67 m/uL (4.30-5.90); RDW 16.3 % (11.5-15.5); WBC 4.8 k/uL (3.8-10.6)
[2020-02-28 08:40] VITALS: TEMP 98.2
[2020-02-28 08:50] LABS: Calcium 9.3 mg/dL (8.4-10.2); Total Bilirubin 0.5 mg/dL (0.2-1.3); Total Protein 6.9 g/dL (6.3-8.2)
[2020-02-28] MEDS: ISOSORBIDE MONONITRATE ER 30 MG TAB.ER.24H PO SCH (08:56)
[2020-02-28] MEDS: DOCUSATE 100 MG CAP PO SCH (08:58)
[2020-02-28] MEDS: hydrALAZINE HCL 25 MG TAB PO SCH (08:58)
[2020-02-28] MEDS: lisinopriL 5 MG TAB PO SCH (08:58)
[2020-02-28] MEDS: ASPIRIN 81 MG PO SCH (08:58)
[2020-02-28] MEDS: FINASTERIDE 5 MG TAB PO SCH (08:58)
[2020-02-28] MEDS: SOTALOL 80 MG TAB PO SCH (08:59)
[2020-02-28] MEDS ORDERED: FENOFIBRATE 54 MG TAB PO SCH (09:00)
[2020-02-28] MEDS ORDERED: ASPIRIN 325 MG TAB PO SCH (09:00)
[2020-02-28 09:59] LABS: Platelet Count 80 k/uL (150-450)
--- NOTE | 2020-02-28 10:21 | ECHOF ---
Referral Reason:Abnormal Troponin MEASUREMENTS -------- HEIGHT: 180.3 cm WEIGHT: 75.7 kg BP: 105/58 RVIDd: 3.3 cm (< 3.3) IVSd: 1.6 cm (0.6 - 1.1) LVIDd: 4.5 cm (3.9 - 5.3) LVPWd: 1.7 cm (0.6 - 1.1) IVSs: 2.4 cm LVIDs: 2.8 cm LVPWs: 2.2 cm Ao Diam: 1.9 cm (2.0 - 3.7) AV Cusp: 1.3 cm (1.5 - 2.6) LA Diam: 4.1 cm (2.7 - 3.8) MV EXCURSION: 14.230 mm (> 18.000) MV EF SLOPE: 57 mm/s (70 - 150) EPSS: 0.3 cm MV E Misael: 0.77 m/s MV DecT: 279 ms MV A Misael: 0.68 m/s MV E/A Ratio: 1.13 AV maxP.20 mmHg AV meanP.40 mmHg RAP: 15.00 mmHg RVSP: 33.20 mmHg FINDINGS -------- Paced rhythm. This was a technically difficult study with suboptimal views. The left ventricular size is normal. There is moderate concentric left ventricular hypertrophy. O verall left ventricular systolic function is normal with, an EF between 55 - 60 %. The right ventricle is mildly enlarged. The left atrium is mildly dilated. The right atrial size is normal. Lumason used The aortic valve was not well visualized. Peak/mean gradient across the Aortic Valve is 17.20mmHg / 12.40mmHg. Normally functioning bioprosthetic valve. The mitral valve leaflets are mildly thickened. Mild mitral regurgitation is present. The tricuspid valve appears structurally normal. Moderate to severe tricuspid regurgitation present . Right ventricular systolic pressure is normal at < 35 mmHg. Trace/mild (physiologic) pulmonic regurgitation. The aortic root size is normal. The inferior vena cava is mildly dilated. There is no pericardial effusion. CONCLUSIONS -------- 1. Paced rhythm. 2. There is moderate concentric left ventricular hypertrophy. 3. Overall left ventricular systolic function is normal with, an EF between 55 - 60 %. 4. The right ventricle is mildly enlarged. 5. The left atrium is mildly dilated. 6. Peak/mean gradient across the Aortic Valve is 17.20mmHg / 12.40mmHg. 7. Normally functioning bioprosthetic valve. 8. The mitral valve leaflets are mildly thickened. 9. Mild mitral regurgitation is present. 10. Moderate to severe tricuspid regurgitation present. 11. Trace/mild (physiologic) pulmonic regurgitation. 12. The inferior vena cava is mildly dilated. 13. There is no pericardial effusion. CARDIAC MONITOR: Lizzy Zamora RDCS
--- NOTE | 2020-02-28 10:24 | P.PN ---
Subjective Progress Note Date: 02/28/20 Principal diagnosis: CC: palpitations Patient currently denies any palpitations. He also denies any chest pain. Patient states that if he needs a heart catheterization he would like to be transferred to [facility]. I told patient due to the pandemic will not be able to transfer him and if cardiology recommends inpatient heart catheterization he should have it done here. Patient states that he will discuss it with his . Also waiting for cardiology recommendations to see if patient would need a heart catheterization are not. Echocardiogram is also pending. Objective - Vital Signs Vital signs: Vital Signs Temp 98.2 F 02/28/20 08:00 Pulse 60 02/28/20 08:00 Resp 14 02/28/20 08:00 BP 109/57 02/28/20 08:00 Pulse Ox 97 02/28/20 08:00 Intake & Output 02/27/20 02/28/20 02/28/20 18:59 06:59 18:59 Intake Total 78.651 53.206 197.935 Output Total 360 Balance 78.651 -306.794 197.935 Weight 77.111 kg 76.1 kg Intake: Intake, IV Titration 78.651 53.206 77.935 Amount Heparin Sod,Pork in 0.45% 78.651 53.206 77.935 NaCl 25,000 unit In 0.45 % NaCl 1 250ml.bag @ 12 UNITS/KG/HR 9.253 mls/hr IV .Q24H ROSA Rx#: [id number] Oral 120 Output: Urine 360 Other: Voiding Method Toilet Toilet # Voids 1 1 0 # Bowel Movements 0 - Exam General examination - Alert and Oriented 3 in NAD, appears chronically debilitated Heart - + S1S2 no murmurs Lungs - diminished breath sounds bilaterally Abdomen soft NT ND +ve BS Extremities - No edema ORACLE SOA ARCHITECT - Moving all 4 extremities spontaneously Psych - Calm and cooperative - Labs CBC & Chem 7: 02/28/20 07:52 02/28/20 07:52 Labs: Abnormal Lab Results - Last 24 Hours (Table) 02/27/20 02/27/20 02/27/20 Range/Units 11:12 14:30 19:22 RBC (4.30-5.90) m/uL Hgb (13.0-17.5) gm/dL Hct (39.0-53.0) % RDW (11.5-15.5) % Plt Count (150-450) k/uL APTT 70.4 H 85.2 H (22.0-30.0) sec BUN (9-20) mg/dL Creatinine (0.66-1.25) mg/dL Glucose (74-99) mg/dL POC Glucose (mg/dL) 134 H (75-99) mg/dL AST (17-59) U/L ALT (4-49) U/L Troponin I (0.000-0.034) ng/mL HDL Cholesterol (40-60) mg/dL 02/27/20 02/28/20 02/28/20 Range/Units 20:11 00:45 05:55 RBC (4.30-5.90) m/uL Hgb (13.0-17.5) gm/dL Hct (39.0-53.0) % RDW (11.5-15.5) % Plt Count (150-450) k/uL APTT 46.5 H (22.0-30.0) sec BUN (9-20) mg/dL Creatinine (0.66-1.25) mg/dL Glucose (74-99) mg/dL POC Glucose (mg/dL) 197 H 106 H (75-99) mg/dL AST (17-59) U/L ALT (4-49) U/L Troponin I (0.000-0.034) ng/mL HDL Cholesterol (40-60) mg/dL 02/28/20 02/28/20 02/28/20 Range/Units 07:52 07:52 07:52 RBC 3.67 L (4.30-5.90) m/uL Hgb 11.0 L (13.0-17.5) gm/dL Hct 34.2 L (39.0-53.0) % RDW 16.3 H (11.5-15.5) % Plt Count 80 L (150-450) k/uL APTT 41.3 H (22.0-30.0) sec BUN 54 H (9-20) mg/dL Creatinine 1.94 H (0.66-1.25) mg/dL Glucose 164 H (74-99) mg/dL POC Glucose (mg/dL) (75-99) mg/dL AST 68 H (17-59) U/L ALT 72 H (4-49) U/L Troponin I (0.000-0.034) ng/mL HDL Cholesterol 90 H (40-60) mg/dL 30/20 Range/Units 07:52 RBC (4.30-5.90) m/uL Hgb (13.0-17.5) gm/dL Hct (39.0-53.0) % RDW (11.5-15.5) % Plt Count (150-450) k/uL APTT (22.0-30.0) sec BUN (9-20) mg/dL Creatinine (0.66-1.25) mg/dL Glucose (74-99) mg/dL POC Glucose (mg/dL) (75-99) mg/dL AST (17-59) U/L ALT (4-49) U/L Troponin I 0.364 H* (0.000-0.034) ng/mL HDL Cholesterol (40-60) mg/dL Assessment and Plan Assessment: Patient is a 79-year-old female who presented to the ED with palpitation. Patient was admitted as use found to have elevated troponin. #Non-ST elevation [place]/history of coronary artery disease status post pacemaker/ICD -Troponin peaked at 0.9. 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
[2020-02-28] MEDS ORDERED: SODIUM CHLORIDE 0.9% 1,000 ML IV SCH (10:30)
[2020-02-28 11:59] LABS: Glucose,Whole Blood 137 mg/dL (75-99)
[2020-02-28] MEDS: FERROUS SULFATE 325 MG TAB PO SCH (12:39)
[2020-02-28] MEDS: CLOPIDOGREL 75 MG TAB PO SCH (12:39)
[2020-02-28 12:45] VITALS: BP 99/45; RESP 12
--- NOTE | 2020-02-28 14:17 | P.DS ---
Providers Date of admission: 02/27/20 04:40 Expected date of discharge: 02/28/20 Attending physician: Santino Ramesh MD Consults: 02/27/20 04:40 Consult Physician Urgent Consulting Provider: Troy Pedersen Consult Reason/Comments: acute coronary syndrome Do you want consulting provider notified?: Yes [facility] Course: Discharge Diagnosis #Non-ST elevation [place]/history of coronary artery disease status post pacemaker/ICD #Palpitations #Mild Acute kidney injury on CK D stage III #Diabetes mellitus #Mildly elevated LFTs #Hypertension #Hypothyroidism #History of aortic valve replacement with pig valve Hospital course Patient is a 79-year-old male who presented to the ED with palpitation. In ED patient was in NSR. However, patient was found to have elevated troponin. Patient was admitted for evaluation of elevated troponin. Patient was started on heparin ggt. His troponin trended down. Patient was seen by cardiology deemed stable for discharge by cardiology. Cardiology ordered a holter monitor for him. He was told to follow up with cardiology. Pt BP was on low side so will hold his hydralazine. His LFts are trending down so I will restart his statin. Patient instructed to resume all his other home meds. Physical exam General examination - Alert and Oriented 3 in NAD, appears chronically debilitated Heart - + S1S2 no murmurs Lungs - diminished breath sounds bilaterally Abdomen soft NT ND +ve BS Extremities - No edema FLATBED STITCHER - Moving all 4 extremities spontaneously Psych - Calm and cooperative Patient Condition at Discharge: Fair Plan - Discharge Summary Discharge Rx Participant: Yes New Discharge Prescriptions: Continue Nitroglycerin 0.4 mg PO Q5M PRN PRN Reason: Chest Pain ALPRAZolam [Xanax] 0.5 mg PO TID PRN PRN Reason: Anxiety Levothyroxine Sodium [Synthroid] 88 mcg PO QAM Aspirin [Adult Low Dose Aspirin EC] 81 mg PO DAILY Torsemide [Demadex] 20 mg PO BID Sotalol [Betapace] 80 mg PO QAM Sotalol [Betapace] 40 mg PO HS lisinopriL [Zestril] 5 mg PO DAILY Rosuvastatin Calcium [Crestor] 20 mg PO DAILY Isosorbide Mononitrate ER [Imdur] 30 mg PO DAILY Glimepiride [Amaryl] 4 mg PO DAILY Finasteride [Proscar] 5 mg PO DAILY Fenofibrate Nanocrystallized [Fenofibrate] 48 mg PO DAILY Docusate [Colace] 100 mg PO BID Acetaminophen [Tylenol] 1,000 mg PO Q4-6H PRN PRN Reason: Pain Or Fever > 100.5 Discontinued hydrALAZINE HCL 25 mg PO TID Discharge Medication List ALPRAZolam [Xanax] 0.5 mg PO TID PRN 12/19/16 [History] Nitroglycerin 0.4 mg PO Q5M PRN 12/19/16 [History] Aspirin [Adult Low Dose Aspirin EC] 81 mg PO DAILY 02/23/19 [History] Levothyroxine Sodium [Synthroid] 88 mcg PO QAM 02/23/19 [History] Acetaminophen [Tylenol] 1,000 mg PO Q4-6H PRN 02/27/20 [History] Docusate [Colace] 100 mg PO BID 02/27/20 [History] Fenofibrate Nanocrystallized [Fenofibrate] 48 mg PO DAILY 02/27/20 [History] Finasteride [Proscar] 5 mg PO DAILY 02/27/20 [History] Glimepiride [Amaryl] 4 mg PO DAILY 02/27/20 [History] Isosorbide Mononitrate ER [Imdur] 30 mg PO DAILY 02/27/20 [History] Rosuvastatin Calcium [Crestor] 20 mg PO DAILY 02/27/20 [History] Sotalol [Betapace] 40 mg PO HS 02/27/20 [History] Sotalol [Betapace] 80 mg PO QAM 02/27/20 [History] Torsemide [Demadex] 20 mg PO BID 02/27/20 [History] lisinopriL [Zestril] 5 mg PO DAILY 02/27/20 [History] Follow up Appointment(s)/Referral(s): Chaz Mcdonald MD [Primary Care Provider] - 1-2 days Discharge Disposition: HOME SELF-CARE
== END 2020-02-28 14:50 | disposition home or self-care (01) ==
LOC: EC 02:00 → 3SCARD 04:40
PROVIDERS: ADMIT Internal Medicine; ATTEND Internal Medicine
DX: I21.4 Non-ST elevation (NSTEMI) myocardial infarction (principal); N17.9 Acute kidney failure, unspecified; I12.9 Hypertensive chronic kidney disease with stage 1 through stage 4 chronic kidney disease, or unspecified chronic kidney disease; E11.22 Type 2 diabetes mellitus with diabetic chronic kidney disease; N18.30 Chronic kidney disease, stage 3 unspecified; R00.0 Tachycardia, unspecified; E78.5 Hyperlipidemia, unspecified; I25.10 Atherosclerotic heart disease of native coronary artery without angina pectoris; R79.89 Other specified abnormal findings of blood chemistry; E03.9 Hypothyroidism, unspecified; Z79.82 Long term (current) use of aspirin; Z79.890 Hormone replacement therapy; Z79.84 Long term (current) use of oral hypoglycemic drugs; Z79.899 Other long term (current) drug therapy; Z85.51 Personal history of malignant neoplasm of bladder; Z95.1 Presence of aortocoronary bypass graft; Z95.828 Presence of other vascular implants and grafts; Z95.810 Presence of automatic (implantable) cardiac defibrillator; Z95.5 Presence of coronary angioplasty implant and graft; Z86.73 Personal history of transient ischemic attack (TIA), and cerebral infarction without residual deficits; Z95.3 Presence of xenogenic heart valve; Z80.42 Family history of malignant neoplasm of prostate
CPT/HCPCS: 96376 ×2; 96366 ×3; 93005 ×2; 96365; 99285; 36415; 93270; 80061; 80053 ×2; 84484 ×2; 85025 ×2; 85610; 85730 ×2; 71046; G0378 ×2; C8929; S0138 ×2; J1644 ×3; Q9950; 93306

== ENCOUNTER → 2020-03-10 | Outpatient (CLI) | payer MEDICARE ==
[2020-03-10 09:42] LABS: Basophils % (A) 0 %; Eosinophils # (A) 0.3 k/uL (0-0.7); Eosinophils % (A) 4 %; HCT 36.4 % (39.0-53.0); HGB 12.1 gm/dL (13.0-17.5); Lymphocytes # (A) 2.2 k/uL (1.0-4.8); Lymphocytes % (A) 32 %; MCH 30.6 pg (25.0-35.0); MCHC 33.3 g/dL (31.0-37.0); MCV 92.1 fL (80.0-100.0); Mean Platelet Volume 8.5; Monocytes # (A) 0.6 k/uL (0-1.0); Monocytes % (A) 8 %; Neutrophils # (A) 3.7 k/uL (1.3-7.7); Neutrophils % (A) 53 %; RBC 3.95 m/uL (4.30-5.90); RDW 15.5 % (11.5-15.5)
[2020-03-10 09:50] LABS: Platelet Count 141 k/uL (150-450)
[2020-03-10 16:18] LABS: % Iron Saturation 33.25 (15.00-50.00); African American GFR (CKD) 33.7 (60.0-200.0); Albumin 4.8 g/dL (3.80-4.90); Albumin/Globulin Ratio 2.09 (1.60-3.17); Anion Gap 7.8 mmol/L (4.00-12.00); BUN/Creat Ratio 33.81 Ratio (12.00-20.00); Calcium 9.2 mg/dL (8.7-10.3); Carbon Dioxide 23.2 mmol/L (21.6-31.8); Chol/HDL Ratio 1.95; Globulin 2.3 g/dL (1.6-3.3); LDL Cholesterol,Calculated 73.2 mg/dL (0.0-131.0); Magnesium 2.5 mg/dL (1.5-2.4); Non-African American GFR(CKD) 29.1 (60.0-200.0); Phosphorus 4.6 mg/dL (2.4-5.1); Potassium 5.1 mmol/L (3.5-5.5); Total Bilirubin 0.5 mg/dL (0.2-1.2); Total Protein 7.1 g/dL (6.2-8.2); VLDL Calculation 17.8 mg/dL (5.00-40.00)
[2020-03-10 16:26] LABS: T4, Free (Free Thyroxine) 1.2 ng/dL (0.80-1.80)
[2020-03-10 16:36] LABS: Ferritin 1115.9 ng/mL (22.0-322.0)
[2020-03-10 17:44] LABS: Hemoglobin A1C 8.2 % (4.0-6.0)
== END | disposition home or self-care (01) ==
LOC: LABWHC1 08:50
PROVIDERS: ATTEND Internal Medicine
DX: E11.22 Type 2 diabetes mellitus with diabetic chronic kidney disease (principal); D63.1 Anemia in chronic kidney disease; E03.9 Hypothyroidism, unspecified; N18.9 Chronic kidney disease, unspecified; E83.9 Disorder of mineral metabolism, unspecified; M89.9 Disorder of bone, unspecified
CPT/HCPCS: 36415; 80053; 80061; 82550; 82728; 83036; 83540; 83550; 83735; 84100; 84439; 84443; 85025

== ENCOUNTER → 2020-08-04 | Outpatient (CLI) | payer MEDICARE ==
[2020-08-04 16:05] LABS: HCT 38.6 % (39.6-50.0); HGB 12.1 g/dL (13.0-17.0); MCH 29.4 pg (27.0-32.0); MCHC 31.3 g/dL (32.0-37.0); MCV 93.7 fL (80.0-97.0); Mean Platelet Volume 12.7 fL (9.5-12.2); Platelet Count 110 X 10*3/uL (140-440); RBC 4.12 X 10*6/uL (4.40-5.60); WBC 7.42 X 10*3/uL (4.50-10.00)
[2020-08-04 18:17] LABS: Hemoglobin A1C 7.6 % (4.0-6.0)
[2020-08-04 21:43] LABS: % Iron Saturation 25.63 (15.00-50.00); Albumin 4.8 g/dL (3.80-4.90); Albumin/Globulin Ratio 2.09 (1.60-3.17); BUN/Creat Ratio 37.86 Ratio (12.00-20.00); Calcium 9.6 mg/dL (8.7-10.3); Chol/HDL Ratio 2.97; Ferritin 834.5 ng/mL (22.0-322.0); Globulin 2.3 g/dL (1.6-3.3); LDL Cholesterol,Calculated 90.4 mg/dL (0.0-131.0); Non-African American GFR(CKD) 47.4 (60.0-200.0); Potassium 5.2 mmol/L (3.5-5.5); Total Bilirubin 0.6 mg/dL (0.2-1.2); Total Protein 7.1 g/dL (6.2-8.2); VLDL Calculation 43.6 mg/dL (5.00-40.00)
[2020-08-04 22:31] LABS: Urine Creatinine 61.9 mg/dL
== END | disposition home or self-care (01) ==
LOC: LABWHC1 08:54
PROVIDERS: ATTEND Internal Medicine
DX: E11.21 Type 2 diabetes mellitus with diabetic nephropathy (principal); E11.22 Type 2 diabetes mellitus with diabetic chronic kidney disease; N18.32 Chronic kidney disease, stage 3b; D50.9 Iron deficiency anemia, unspecified; E03.9 Hypothyroidism, unspecified; D63.1 Anemia in chronic kidney disease
CPT/HCPCS: 36415; 80053; 80061; 82043; 82550; 82570; 82728; 83036; 83540; 83550; 84443; 84466; 85027

== ENCOUNTER → 2020-09-14 | Outpatient (CLI) | payer MEDICARE ==
[2020-09-14 09:48] LABS: INR 1.1 (<1.2); Partial Thromboplastin Time 27.1 sec (22.0-30.0); Prothrombin Time 11.3 sec (9.0-12.0)
[2020-09-14 11:56] LABS: Appearance,Urine Clear (Clear); Bilirubin,Urine Negative (Negative); Blood,Urine Negative (Negative); Color,Urine Light Yellow; Glucose,Urine (UA) Negative (Negative); Ketones,Urine Negative (Negative); Leukocyte Esterase,Urine Negative (Negative); Nitrite,Urine Negative (Negative); Protein,Urine Negative (Negative); Specific Gravity,Urine 1.008 (1.001-1.035); Urobilinogen,Urine <2.0 mg/dL (<2.0)
[2020-09-14 15:18] LABS: Basophils # (A) 0.04 X 10*3/uL (0.00-0.10); Basophils % (A) 0.6 %; Eosinophils # (A) 0.14 X 10*3/uL (0.04-0.35); HCT 36.3 % (39.6-50.0); HGB 11.7 g/dL (13.0-17.0); Lymphocytes # (A) 1.95 X 10*3/uL (0.90-5.00); Lymphocytes % (A) 28.5 %; MCHC 32.2 g/dL (32.0-37.0); MCV 93.1 fL (80.0-97.0); Mean Platelet Volume 12.5 fL (9.5-12.2); Monocytes # (A) 0.66 X 10*3/uL (0.20-1.00); Monocytes % (A) 9.6 %; Neutrophils # (A) 4.03 X 10*3/uL (1.80-7.70); Platelet Count 110 X 10*3/uL (140-440); RDW 13.7 % (11.5-14.5); WBC 6.84 X 10*3/uL (4.50-10.00)
[2020-09-14 20:56] LABS: Hepatitis A Antibody IgM Non-Reactive (Non-Reactive); Hepatitis B Core IgM Non-Reactive (Non-Reactive); Hepatitis B Surface Antigen Non-Reactive (Non-Reactive); Hepatitis C IgG Antibody Non-Reactive (Non-Reactive)
[2020-09-14 20:59] LABS: African American GFR (CKD) 40.6 (60.0-200.0); Albumin 4.9 g/dL (3.80-4.90); Albumin/Globulin Ratio 1.88; Anion Gap 12.3 mmol/L (4.00-12.00); BUN/Creat Ratio 41.67 Ratio (12.00-20.00); Bilirubin, Conjugated 0.2 mg/dL (0.20-0.40); Calcium 9.4 mg/dL (8.7-10.3); Carbon Dioxide 22.7 mmol/L (21.6-31.8); Globulin 2.6; Magnesium 2.3 mg/dL (1.5-2.4); Phosphorus 5.1 mg/dL (2.4-5.1); Potassium 5.3 mmol/L (3.5-5.5); Total Bilirubin 0.6 mg/dL (0.3-1.2); Total Protein 7.5 g/dL (6.2-8.2)
[2020-09-15 13:00] LABS: Ceruloplasmin 33.7 mg/dL (20.0-60.0)
== END | disposition home or self-care (01) ==
LOC: LABWHC1 08:39
PROVIDERS: ATTEND Internal Medicine
DX: N18.31 Chronic kidney disease, stage 3a (principal); E83.9 Disorder of mineral metabolism, unspecified; M89.9 Disorder of bone, unspecified; D68.9 Coagulation defect, unspecified; R74.8 Abnormal levels of other serum enzymes
CPT/HCPCS: 36415; 80069; 80074; 80076; 81003; 82306; 82390; 83516; 83735; 83970; 85025; 85610; 85730; 86038; 86376

== ENCOUNTER → 2020-11-08 | Outpatient (CLI) | payer MEDICARE ==
[2020-11-08 14:29] LABS: Basophils # (A) 0.04 X 10*3/uL (0.00-0.10); Basophils % (A) 0.6 %; Eosinophils # (A) 0.15 X 10*3/uL (0.04-0.35); Eosinophils % (A) 2.1 %; HCT 34.1 % (39.6-50.0); HGB 10.9 g/dL (13.0-17.0); Lymphocytes # (A) 2.07 X 10*3/uL (0.90-5.00); Lymphocytes % (A) 29.5 %; MCH 29.5 pg (27.0-32.0); MCV 92.2 fL (80.0-97.0); Mean Platelet Volume 12.3 fL (9.5-12.2); Monocytes # (A) 0.67 X 10*3/uL (0.20-1.00); Monocytes % (A) 9.5 %; Neutrophils # (A) 4.06 X 10*3/uL (1.80-7.70); Neutrophils % (A) 57.9 %; Platelet Count 102 X 10*3/uL (140-440); WBC 7.02 X 10*3/uL (4.50-10.00)
[2020-11-08 17:10] LABS: Hemoglobin A1C 7.2 % (4.0-6.0)
[2020-11-08 21:48] LABS: % Iron Saturation 22.38 (15.00-50.00); African American GFR (CKD) 46.5 (60.0-200.0); Albumin 4.6 g/dL (3.80-4.90); Albumin/Globulin Ratio 1.64 (1.60-3.17); Anion Gap 12.3 mmol/L (4.00-12.00); BUN/Creat Ratio 36.25 Ratio (12.00-20.00); Calcium 8.7 mg/dL (8.7-10.3); Carbon Dioxide 20.7 mmol/L (21.6-31.8); Chol/HDL Ratio 2.85; Ferritin 894.7 ng/mL (22.0-322.0); Globulin 2.8 g/dL (1.6-3.3); LDL Cholesterol,Calculated 88.4 mg/dL (0.0-131.0); Non-African American GFR(CKD) 40.1 (60.0-200.0); Potassium 4.8 mmol/L (3.5-5.5); Total Bilirubin 0.6 mg/dL (0.2-1.2); Total Protein 7.4 g/dL (6.2-8.2); VLDL Calculation 26.6 mg/dL (5.00-40.00)
== END | disposition home or self-care (01) ==
LOC: LABWHC1 09:13
PROVIDERS: ATTEND Internal Medicine
DX: E11.22 Type 2 diabetes mellitus with diabetic chronic kidney disease (principal); N18.32 Chronic kidney disease, stage 3b; E11.21 Type 2 diabetes mellitus with diabetic nephropathy; D50.9 Iron deficiency anemia, unspecified
CPT/HCPCS: 36415; 80053; 80061; 82550; 82728; 83036; 83540; 83550; 85025

== ENCOUNTER 2022-11-15 23:26 | Emergency (ER) | payer MEDICARE ==
[2022-11-15 23:56] VITALS: BP 159/92; PULSE 93; RESP 18; TEMP 98
[2022-11-16] MEDS ORDERED: GELATIN SPONGE,ABSORB (SMALL) 1 EACH SPONGE TOPICAL STA (01:19)
--- NOTE | 2022-11-16 01:48 | ED ---
Wound/Laceration HPI - General Chief Complaint: Wound/Laceration Stated Complaint: Laceration in left thumb Time Seen by Provider: 11/16/22 01:08 Source: patient Mode of arrival: ambulatory Limitations: no limitations - History of Present Illness Initial Comments: 82-year-old male presenting with chief complaint of wound was recurrent bleeding. Patient states that around 1700 today he pinched his left hand while folding a folding table. He has a small skin tear that has continued to bleed. no blood thinners. Full range of motion of the hand. No numbness or tingling. - Related Data Home Medications Medication Instructions Recorded Confirmed ALPRAZolam [Xanax] 0.5 mg PO TID PRN 12/19/16 02/27/20 Nitroglycerin 0.4 mg PO Q5M PRN 12/19/16 02/27/20 Aspirin [Adult Low Dose Aspirin EC] 81 mg PO DAILY 02/23/19 02/27/20 Levothyroxine Sodium [Synthroid] 88 mcg PO QAM 02/23/19 02/27/20 Acetaminophen [Tylenol] 1,000 mg PO Q4-6H PRN 02/27/20 02/27/20 Docusate [Colace] 100 mg PO BID 02/27/20 02/27/20 Fenofibrate Nanocrystallized 48 mg PO DAILY 02/27/20 02/27/20 [Fenofibrate] Finasteride [Proscar] 5 mg PO DAILY 02/27/20 02/27/20 Glimepiride [Amaryl] 4 mg PO DAILY 02/27/20 02/27/20 Isosorbide Mononitrate ER [Imdur] 30 mg PO DAILY 02/27/20 02/27/20 Rosuvastatin Calcium [Crestor] 20 mg PO DAILY 02/27/20 02/27/20 Sotalol [Betapace] 40 mg PO HS 02/27/20 02/27/20 Sotalol [Betapace] 80 mg PO QAM 02/27/20 02/27/20 Torsemide [Demadex] 20 mg PO BID 02/27/20 02/27/20 lisinopriL [Zestril] 5 mg PO DAILY 02/27/20 02/27/20 Allergies Allergy/AdvReac Type Severity Reaction Status Date / Time No Known Allergies Allergy Verified 02/27/20 09:27 Review of Systems ROS Statement: Those systems with pertinent positive or pertinent negative responses have been documented in the HPI. ROS Other: All systems not noted in ROS Statement are negative. Past Medical History Past Medical History: Diabetes Mellitus, Hyperlipidemia, Hypertension Additional Past Medical History / Comment(s): bladder CA, History of Any Multi-Drug Resistant Organisms: None Reported Past Surgical History: Appendectomy, Coronary Bypass/CABG, Heart Catheterization With Stent, Pacemaker Additional Past Surgical History / Comment(s): stents in right leg, aortic valve replacement Past Anesthesia/Blood Transfusion Reactions: No Reported Reaction Date of Last Stent Placement:: 2006 Type of Cardiac Device: Permanent Pacemaker Device Placement Date:: 2010 Past Psychological History: No Psychological Hx Reported Smoking Status: Never smoker Past Alcohol Use History: None Reported Past Drug Use History: None Reported - Past Family History Brother(s) Additional Family Medical History / Comment(s): prostate ca Father Additional Family Medical History / Comment(s): cancer- unknown General Exam Limitations: no limitations General appearance: alert, in no apparent distress Head exam: Present: atraumatic, normocephalic, normal inspection Eye exam: Present: normal appearance, EOMI Neck exam: Present: normal inspection, full ROM Respiratory exam: Absent: respiratory distress Neurological exam: Present: alert, oriented X3, CN II-XII intact Psychiatric exam: Present: normal affect, normal mood Skin exam: Present: abrasion (Small skin tear the left hand) Course Vital Signs 11/15/22 23:52 Temperature 98 F Pulse Rate 93 Respiratory 18 Rate Blood Pressure 159/92 O2 Sat by Pulse 98 Oximetry Medical Decision Making - Medical Decision Making Was pt. sent in by a medical professional or institution (, PA, SECTION LEADER AND MACHINE SETTER, urgent care, hospital, or jail...) When possible be specific @ -No Did you speak to anyone other than the patient for history (EMS, parent, family, police, friend...)? What history was obtained from this source @ -No Did you review nursing and triage notes (agree or disagree)? Why? @ -I reviewed and agree with nursing and triage notes Were old charts reviewed (outside hosp., previous admission, EMS record, old EKG, old radiological studies, urgent care reports/EKG's, jail records)? Report findings @ -No old charts were reviewed Differential Diagnosis (chest pain, altered mental status, abdominal pain women, abdominal pain men, vaginal bleeding, weakness, fever, dyspnea, syncope, headache, dizziness, GI bleed, back pain, seizure, CVA, palpatations, mental health, musculoskeletal)? @ -not applicable EKG interpreted by me (3pts min.). @ -As above X-rays interpreted by me (1pt min.). @ -None done CT interpreted by me (1pt min.). @ -None done U/S interpreted by me (1pt. min.). @ -None done What testing was considered but not performed or refused? (CT, X-rays, U/S, labs)? Why? @ -None What meds were considered but not given or refused? Why? @ -None Did you discuss the management of the patient with other professionals (professionals i.e. , PA, SECTION LEADER AND MACHINE SETTER, lab, RT, psych nurse, social media content manager, associate director of biostatistics, teacher, chief financial officer, watch caser)? Give summary @ -No Was smoking cessation discussed for >3mins.? @ -No Was critical care preformed (if so, how long)? @ -No Were there social determinants of health that impacted care today? How? (Homelessness, low income, unemployed, alcoholism, drug addiction, transportation, low edu. Level, literacy, decrease access to med. care, skilled nursing, rehab)? @ -No Was there de-escalation of care discussed even if they declined (Discuss DNR or withdrawal of care, Hospice)? DNR status @ -No What co-morbidities impacted this encounter? (DM, HTN, Smoking, COPD, CAD, Cancer, CVA, ARF, Chemo, Hep., AIDS, mental health diagnosis, sleep apnea, morbid obesity)? @ -None Was patient admitted / discharged? Hospital course, mention meds given and route, prescriptions, significant lab abnormalities, going to OR and other pertinent info. @ -82-year-old male presenting with chief complaint of recurrent bleeding skin tear that he obtained today. No blood thinners. Small skin tear to left hand. Gelfoam was applied and patient is educated on wound care. Follow-up with PCP. Report back to ER with any new or worsening symptoms. Discussed return parameters and answered all questions. Patient conveyed verbal understanding and agreed to the plan. I discussed this case in detail with my attending Dr. Clare Undiagnosed new problem with uncertain prognosis? @ -No Drug Therapy requiring intensive monitoring for toxicity (Heparin, Nitro, Insulin, Cardizem)? @ -No Were any procedures done? @ -No Diagnosis/symptom? @ -Skin tear Acute, or Chronic, or Acute on Chronic? @ -Acute Uncomplicated (without systemic symptoms) or Complicated (systemic symptoms)? @ -Uncomplicated Side effects of treatment? @ -No Exacerbation, Progression, or Severe Exacerbation? @ -No Poses a threat to life or bodily function? How? (Chest pain, [place], [place], pneumonia, PE, COPD, DKA, ARF, appy, cholecystitis, CVA, Diverticulitis, Homicidal, Suicidal, threat to staff... and all critical care pts) @ -No Disposition Clinical Impression: Skin tear Disposition: HOME SELF-CARE Condition: Good Instructions (If sedation given, give patient instructions): Skin Tear (ED) Additional Instructions: Follow-up with PCP. Report back to ER with new or worsening symptoms. Gelfoam may be removed in 3-5 days. Normally this will fall off on its own, you may also soak the Gelfoam to remove it. Is patient prescribed a controlled substance at d/c from ED?: No Referrals: Chaz Mcdonald MD [Primary Care Provider] - 1-2 days Time of Disposition: 01:48
== END 2022-11-16 01:55 | disposition home or self-care (01) ==
LOC: EC 23:26
DX: S61.012A Laceration without foreign body of left thumb without damage to nail, initial encounter (principal); E11.9 Type 2 diabetes mellitus without complications; I10 Essential (primary) hypertension; Z79.82 Long term (current) use of aspirin; Z79.84 Long term (current) use of oral hypoglycemic drugs; Z79.899 Other long term (current) drug therapy; W23.0XXA Caught, crushed, jammed, or pinched between moving objects, initial encounter
CPT/HCPCS: 99282

== ENCOUNTER 2023-09-12 09:39 | Observation (INO) | payer MEDICARE ==
--- NOTE | 2023-09-12 09:58 | ED ---
Chest Pain HPI - General Source: patient, RN notes reviewed Mode of arrival: ambulatory Limitations: no limitations - History of Present Illness MD Complaint: chest pain <Rabia Gusman - Last Filed: 09/12/23 09:56> - General Source: patient, RN notes reviewed, old records reviewed Mode of arrival: ambulatory Limitations: no limitations <Morgan Butler - Last Filed: 09/12/23 13:41> - General Chief Complaint: Chest Pain Stated Complaint: Chest pain, nose bleeds Time Seen by Provider: 09/12/23 09:56 - History of Present Illness Initial Comments: Quick Note: This is an 82 year old male who presents to the emergency department for chest pain. States that it has been occurring intermittently for the last couple of weeks, however it has been more constant over the last 2 days. The chest pain tends to change locations in his chest. Denies any shortness of breath. He had a cardiac catheterization at [facility] at the end of last month and did not require any stents. (Rabia Gusman) Patient is an 82-year-old female present to the emergency department with concerns with chest discomfort. Onset of symptoms was a week ago. Patient is having intermittent discomfort that used to be daily however now is several times per day. Discomfort feels like pressure however only last for a few seconds. No discomfort at this time. No dyspnea. Patient does have previous cardiac history (Morgan Butler) - Related Data Home Medications Medication Instructions Recorded Confirmed ALPRAZolam [Xanax] 0.5 mg PO TID PRN 12/19/16 02/27/20 Nitroglycerin 0.4 mg PO Q5M PRN 12/19/16 02/27/20 Aspirin [Adult Low Dose Aspirin EC] 81 mg PO DAILY 02/23/19 02/27/20 Levothyroxine Sodium [Synthroid] 88 mcg PO QAM 02/23/19 02/27/20 Acetaminophen [Tylenol] 1,000 mg PO Q4-6H PRN 02/27/20 02/27/20 Docusate [Colace] 100 mg PO BID 02/27/20 02/27/20 Fenofibrate Nanocrystallized 48 mg PO DAILY 02/27/20 02/27/20 [Fenofibrate] Finasteride [Proscar] 5 mg PO DAILY 02/27/20 02/27/20 Glimepiride [Amaryl] 4 mg PO DAILY 02/27/20 02/27/20 Isosorbide Mononitrate ER [Imdur] 30 mg PO DAILY 02/27/20 02/27/20 Rosuvastatin Calcium [Crestor] 20 mg PO DAILY 02/27/20 02/27/20 Sotalol [Betapace] 40 mg PO HS 02/27/20 02/27/20 Sotalol [Betapace] 80 mg PO QAM 02/27/20 02/27/20 Torsemide [Demadex] 20 mg PO BID 02/27/20 02/27/20 lisinopriL [Zestril] 5 mg PO DAILY 02/27/20 02/27/20 Allergies Allergy/AdvReac Type Severity Reaction Status Date / Time No Known Allergies Allergy Verified 09/12/23 10:03 Review of Systems ROS Other: All systems not noted in ROS Statement are negative. <Rabia Gusman - Last Filed: 09/12/23 09:56> ROS Other: All systems not noted in ROS Statement are negative. Constitutional: Denies: fever Eyes: Denies: eye pain ENT: Denies: throat pain Respiratory: Denies: dyspnea Cardiovascular: Reports: as per HPI, chest pain Endocrine: Denies: fatigue Gastrointestinal: Denies: abdominal pain <Morgan Butler - Last Filed: 09/12/23 13:41> ROS Statement: Those systems with pertinent positive or pertinent negative responses have been documented in the HPI. EKG Findings - EKG Results: EKG: interpreted by ERMD (Paced rhythm with a rate of 86. Right axis. Wide- complex QRS. Nonspecific ST-T.) <Morgan Butler - Last Filed: 09/12/23 13:41> Past Medical History Past Medical History: Diabetes Mellitus, Hyperlipidemia, Hypertension Additional Past Medical History / Comment(s): bladder CA, History of Any Multi-Drug Resistant Organisms: None Reported Past Surgical History: Appendectomy, Coronary Bypass/CABG, Heart Catheterization With Stent, Pacemaker Additional Past Surgical History / Comment(s): stents in right leg, aortic valve replacement Past Anesthesia/Blood Transfusion Reactions: No Reported Reaction Date of Last Stent Placement:: 2006 Type of Cardiac Device: Permanent Pacemaker Device Placement Date:: 2010 Past Psychological History: No Psychological Hx Reported Smoking Status: Never smoker Past Alcohol Use History: None Reported Past Drug Use History: None Reported - Past Family History Brother(s) Additional Family Medical History / Comment(s): prostate ca Father Additional Family Medical History / Comment(s): cancer- unknown <Rabia Gusman - Last Filed: 09/12/23 09:56> General Exam <Rabia Gusman - Last Filed: 09/12/23 09:56> Limitations: no limitations General appearance: alert Head exam: Present: normocephalic Eye exam: Present: normal appearance Neck exam: Present: normal inspection Respiratory exam: Present: normal lung sounds bilaterally Cardiovascular Exam: Present: regular rate, normal rhythm Expanded Peripheral pulses: 2+: Radial (R), Radial (L), Dorsalis Pedis (R), Dorsalis Pedis (L) GI/Abdominal exam: Present: soft. Absent: tenderness Extremities exam: Present: normal inspection. Absent: pedal edema, calf tenderness Neurological exam: Present: alert Psychiatric exam: Present: normal affect, normal mood Skin exam: Present: normal color <Morgan Butler - Last Filed: 09/12/23 13:41> - General Exam Comments Initial Comments: Visual Physical Exam Vital signs reviewed General: Well-appearing, nontoxic, no acute distress. Head: Normocephalic, atraumatic Eyes: PERRLA, EOMI ENT: Airway patent Chest: Nonlabored breathing Skin: No visual rash, normal skin tone Neuro: Alert and oriented 3 Musculoskeletal: No gross abnormalities (Rabia Gusman) Course Vital Signs 09/12/23 09/12/23 10:01 12:44 Temperature 97.4 F L Pulse Rate 88 Respiratory 18 Rate Blood Pressure 115/22 123/78 O2 Sat by Pulse 100 Oximetry Chest Pain MDM <Rabia Gusman - Last Filed: 09/12/23 09:56> <Morgan Butler - Last Filed: 09/12/23 13:41> - MDM I performed the QuickNote portion of this chart. Signed Rabia Gusman PA-C. (Rabia Gusman) Was pt. sent in by a medical professional or institution ([facility] [place], [facility], urgent care, hospital, or long-term...) When possible be specific @ -No Did you speak to anyone other than the patient for history (EMS, parent, family, police, friend...)? What history was obtained from this source @ - is present and helps provide additional history including previous cardiac history Did you review nursing and triage notes (agree or disagree)? Why? @ -I reviewed and agree with nursing and triage notes Were old charts reviewed (outside hosp., previous admission, EMS record, old EKG, old radiological studies, urgent care reports/EKG's, long-term records)? Report findings @ -No old charts were reviewed Differential Diagnosis (chest pain, altered mental status, abdominal pain women, abdominal pain men, vaginal bleeding, weakness, fever, dyspnea, syncope, headache, dizziness, GI bleed, back pain, seizure, CVA, palpatations, mental health, musculoskeletal)? @ -MDM differential chest differential Chest Pain: Stable Angina, Unstable Angina, STEMI, NSTEMI Aortic Dissection, Pneumothorax, Musculoskeletal, Esophageal Spasm GERD, Cholecystitis, Pancreatitis, Zoster, this is not meant to be an all-inclusive list. EKG interpreted by me (3pts min.). @ -As above X-rays interpreted by me (1pt min.). @ -Chest x-ray shows no acute process. Pacemaker CT interpreted by me (1pt min.). @ -None done U/S interpreted by me (1pt. min.). @ -None done What testing was considered but not performed or refused? (CT, X-rays, U/S, labs)? Why? @ -None What meds were considered but not given or refused? Why? @ -None Did you discuss the management of the patient with other professionals (professionals i.e. , PA, CAR OILER, lab, RT, psych nurse, healthcare social worker, bench assembly inspector, teacher, client sales and service officer, case liner)? Give summary @ -Case was discussed with Dr. Willingham who will admit covering hospital call Was smoking cessation discussed for >3mins.? @ -No Was critical care preformed (if so, how long)? @ -No Were there social determinants of health that impacted care today? How? (Homelessness, low income, unemployed, alcoholism, drug addiction, transportation, low edu. Level, literacy, decrease access to med. care, half-way, rehab)? @ -No Was there de-escalation of care discussed even if they declined (Discuss DNR or withdrawal of care, Hospice)? DNR status @ -No What co-morbidities impacted this encounter? (DM, HTN, Smoking, COPD, CAD, Cancer, CVA, ARF, Chemo, Hep., AIDS, mental health diagnosis, sleep apnea, morbid obesity)? @ -Coronary artery disease Was patient admitted / discharged? Hospital course, mention meds given and route, prescriptions, significant lab abnormalities, going to OR and other per tinent info. @ -Patient presents with chest pain. First opponent negative. Patient will be admitted with cardiac consult. Admission orders written Undiagnosed new problem with uncertain prognosis? @ -No Drug Therapy requiring intensive monitoring for toxicity (Heparin, Nitro, Insulin, Cardizem)? @ -No Were any procedures done? @ -No Diagnosis/symptom? @ -Chest pain Acute, or Chronic, or Acute on Chronic? @ -Acute Uncomplicated (without systemic symptoms) or Complicated (systemic symptoms)? @ -Default Side effects of treatment? @ -No Exacerbation, Progression, or Severe Exacerbation? @ -No Poses a threat to life or bodily function? How? (Chest pain, [place], [place], pneumonia, PE, COPD, DKA, ARF, appy, cholecystitis, CVA, Diverticulitis, Homicidal, Suicidal, threat to staff... and all critical care pts) @ -Potential for cardiac dysfunction (Morgan Butler) Disposition <Rabia Gusman - Last Filed: 09/12/23 09:56> Is patient prescribed a controlled substance at d/c from ED?: No Time of Disposition: 13:41 <Morgan Butler - Last Filed: 09/12/23 13:41> Clinical Impression: Chest pain Disposition: ADMITTED IP TO THIS HOSP Referrals: Chaz Mcdonald MD [Primary Care Provider] - 1-2 days
[2023-09-12 10:50] LABS: Anisocytosis Slight; Basophils % (A) 0 %; Eosinophils # (A) 0.1 k/uL (0-0.7); Eosinophils % (A) 1 %; HCT 40.7 % (39.0-53.0); HGB 12.1 gm/dL (13.0-17.5); Hypochromasia Moderate; Lymphocytes # (A) 1.6 k/uL (1.0-4.8); Lymphocytes % (A) 25 %; MCH 26.4 pg (25.0-35.0); MCHC 29.9 g/dL (31.0-37.0); MCV 88.5 fL (80.0-100.0); Mean Platelet Volume 9.8; Monocytes # (A) 0.5 k/uL (0-1.0); Monocytes % (A) 8 %; Neutrophils % (A) 63 %; Platelet Count 115 k/uL (150-450); RDW 18.1 % (11.5-15.5); WBC 6.3 k/uL (3.8-10.6)
[2023-09-12 10:56] LABS: INR 1.3 (<1.2); Partial Thromboplastin Time 27.3 sec (22.0-30.0); Prothrombin Time 13.6 sec (10.0-12.5)
[2023-09-12 10:57] LABS: ALT 133 U/L (4-49); African American GFR (CKD) 62 (>60 ml/min/1.73 sqM); Anion Gap 6 mmol/L; Blood Urea Nitrogen 41 mg/dL (9-20); Calcium 8.6 mg/dL (8.4-10.2); Carbon Dioxide 20 mmol/L (22-30); Chloride 109 mmol/L (98-107); Glucose 150 mg/dL (74-99); Non-African American GFR(CKD) 54 (>60 ml/min/1.73 sqM); Sodium 135 mmol/L (137-145); Total Bilirubin 0.8 mg/dL (0.2-1.3)
[2023-09-12 11:01] LABS: AST 126 U/L (17-59); Albumin 4.1 g/dL (3.5-5.0); Alkaline Phosphatase 158 U/L (38-126); Potassium 5.2 mmol/L (3.5-5.1); Total Protein 6.7 g/dL (6.3-8.2)
[2023-09-12 11:02] LABS: Magnesium 2.1 mg/dL (1.6-2.3)
--- NOTE | 2023-09-12 13:13 | XR ---
EXAMINATION TYPE: XR chest 2V DATE OF EXAM: 09/12/2023 COMPARISON: 02/27/2024 TECHNIQUE: PA and lateral views submitted. HISTORY: Chest pain FINDINGS: The lungs are clear and there is no pneumothorax, pleural effusion, or focal pneumonia. The heart is enlarged and no overt failure. Osseous structures demonstrate hypertrophic and degenerative changes of the spine. Post aortic valve replacement. Median sternotomy changes. Cardiac device. Postsurgical change overlying the cervical spine. IMPRESSION: 1. No acute process.
[2023-09-12] MEDS ORDERED: NITROGLYCERIN SL TABS 0.4 MG TAB SUBLINGUAL PRN (13:42)
[2023-09-12] MEDS: ASPIRIN 81 MG PO STA (13:56)
[2023-09-12 17:18] LABS: Glucose,Whole Blood 118 mg/dL (70-110)
[2023-09-12] MEDS ORDERED: ACETAMINOPHEN TAB 500 MG TAB PO PRN (18:02)
[2023-09-12] MEDS: NITROGLYCERIN OINT 1 INCH/GM PACKET TOPICAL SCH (18:23)
[2023-09-12] MEDS: SODIUM ZIRCONIUM CYCLOSILICATE 10 GM PACKET PO ONE (18:56)
[2023-09-12 20:35] VITALS: RESP 16
[2023-09-12 20:43] LABS: Glucose,Whole Blood 200 mg/dL (70-110)
[2023-09-12] MEDS: ALPRAZolam 0.5 MG TAB PO SCH (20:50)
[2023-09-12] MEDS: ATORVASTATIN 40 MG TAB PO SCH (20:50)
[2023-09-12] MEDS: EZETIMIBE 10 MG TAB PO SCH (20:50)
[2023-09-12] MEDS: SACUBITRIL/VALSARTAN 24 MG-26 MG TABLET PO SCH (20:51)
[2023-09-12] MEDS: METOPROLOL SUCCINATE (ER) 100 MG TAB.ER.24H PO SCH (23:15)
[2023-09-13 02:42] VITALS: PULSE 89
[2023-09-13 05:39] LABS: Glucose,Whole Blood 123 mg/dL (70-110)
[2023-09-13] MEDS: LEVOTHYROXINE 88 MCG TAB PO SCH (06:15)
[2023-09-13 07:48] LABS: ALT 107 U/L (4-49); AST 73 U/L (17-59); African American GFR (CKD) 56 (>60 ml/min/1.73 sqM); Albumin 3.8 g/dL (3.5-5.0); Albumin/Globulin Ratio 1.7; Alkaline Phosphatase 152 U/L (38-126); Anion Gap 6 mmol/L; Blood Urea Nitrogen 35 mg/dL (9-20); Calcium 8.6 mg/dL (8.4-10.2); Carbon Dioxide 22 mmol/L (22-30); Chloride 108 mmol/L (98-107); Globulin 2.3 g/dL; Glucose 120 mg/dL (74-99); Non-African American GFR(CKD) 49 (>60 ml/min/1.73 sqM); Potassium 4.6 mmol/L (3.5-5.1); Sodium 136 mmol/L (137-145); Total Bilirubin 0.5 mg/dL (0.2-1.3); Total Protein 6.1 g/dL (6.3-8.2)
[2023-09-13 07:49] VITALS: BP 104/68; TEMP 97.8
[2023-09-13] MEDS ORDERED: METOPROLOL SUCCINATE (ER) 100 MG TAB.ER.24H PO SCH (09:00)
[2023-09-13] MEDS ORDERED: ASPIRIN 325 MG TAB PO SCH (09:00)
[2023-09-13 10:02] LABS: Glucose,Whole Blood 131 mg/dL (70-110)
[2023-09-13 12:14] LABS: Glucose,Whole Blood 128 mg/dL (70-110)
[2023-09-13] MEDS: ZINC SULFATE 220 MG CAP PO SCH (12:21)
[2023-09-13] MEDS: ASPIRIN 81 MG PO SCH (12:21)
[2023-09-13] MEDS: ASCORBIC ACID 500 MG TAB PO SCH (12:21)
[2023-09-13] MEDS: CHOLECALCIFEROL 25 MCG (1000 IU) TABLET PO SCH (12:21)
[2023-09-13] MEDS: DAPAGLIFLOZIN PROPANEDIOL 5 MG TABLET PO SCH (12:21)
[2023-09-13] MEDS: FINASTERIDE 5 MG TAB PO SCH (12:22)
[2023-09-13] MEDS: AMIODARONE 200 MG TAB PO SCH (12:22)
[2023-09-13] MEDS: RANOLAZINE 500 MG TAB.ER.12H PO SCH (13:10)
[2023-09-13 13:15] LABS: Chol/HDL Ratio 2.02 Ratio; LDL Cholesterol,Calculated 42.3 mg/dL (0.0-131.0)
--- NOTE | 2023-09-13 13:27 | P.HPIM ---
History of Present Illness H&P Date: 09/12/23 Chief Complaint: Chest pain Patient is a 82-year-old male with a known history of atrial fibrillation on anticoagulation with Xarelto, hypertension, diabetes type 2, hyperlipidemia, history of bladder cancer, coronary artery disease status post 5 vessel CABG and stent placement, aortic valve replacement patient also has pacemaker placement in 2010 and recent history of cardiac catheterization presents to ER with complaints of chest pain. Patient states that he has been having on and off chest pain for about a month. Mainly in the epigastric pressure-like symptoms and discomfort. Usually the pain comes around 1-2 times per week. Patient has been having more frequent chest pains which made him to come to ER. Otherwise denies any complaints of chest pain. Patient states that he had a history of cardiac catheterization at [facility] and of last month but did not require any new stents. Denies any dizziness or lightheadedness. No cough or sputum production. No fever no chills. Denies any other recent illnesses. No leg swelling. Chest x-ray showed no acute process. EKG showed electronic ventricular pacemaker rhythm. Laboratory data showed WBC 6.3 hemoglobin 12.1 and platelets 115 INR 1.3 sodium 135 potassium 5.2 chloride 109 bicarb is 20 BUN 41 and creatinine 1.25 and blood sugar 150, AST 126 ALT 133 and alk phos 158 and total bili 0.8 and troponin 0.013, 0.012 and 0.013 Review of Systems Constitutional: Patient denies any fever or chills . No generalized weakness or weight loss. Abdomen: Patient denied nausea vomiting and diarrhea and abdominal pain. Cardiovascular: Patient denies any chest pain or short of breath no palpitations. Respiratory: patient denied any cough or sputum production. No shortness of breath Neurologic: Patient denied any numbness or tingling. no headache. Musculoskeletal: Patient denies any complaints of joint swelling or deformity. Skin: Negative Psychiatric: Negative Endocrine: No heat or cold intolerance. No recent weight gain. Genitourinary: No dysuria or hematuria. All other 14 point ROS negative except the above Past Medical History Past Medical History: Atrial Fibrillation, Diabetes Mellitus, Hyperlipidemia, Hypertension Additional Past Medical History / Comment(s): bladder CA, long haul covid. History of Any Multi-Drug Resistant Organisms: None Reported Past Surgical History: Appendectomy, Cardiac Valve Replacement, Coronary Bypass/CABG, Heart Catheterization With Stent, Pacemaker, Tonsillectomy Additional Past Surgical History / Comment(s): stents in right leg, aortic valve replacement and brain bleed, cardioversion, 5 vessel cabg 1993, Past Anesthesia/Blood Transfusion Reactions: No Reported Reaction Date of Last Stent Placement:: 2006 Type of Cardiac Device: Permanent Pacemaker Device Placement Date:: 2010 Past Psychological History: No Psychological Hx Reported Smoking Status: Never smoker Past Alcohol Use History: None Reported Past Drug Use History: None Reported - Past Family History Brother(s) Additional Family Medical History / Comment(s): prostate ca Father Additional Family Medical History / Comment(s): cancer- unknown Medications and Allergies Home Medications Medication Instructions Recorded Confirmed Type ALPRAZolam [Xanax] 0.5 mg PO HS 12/19/16 09/12/23 History Nitroglycerin 0.4 mg SL Q5M PRN 12/19/16 09/12/23 History Aspirin [Adult Low Dose Aspirin EC] 81 mg PO DAILY 02/23/19 09/12/23 History Levothyroxine Sodium [Synthroid] 88 mcg PO [id number] 02/23/19 09/12/23 History Acetaminophen [Tylenol] 1,000 mg PO Q4-6H PRN 02/27/20 09/12/23 History Finasteride [Proscar] 5 mg PO DAILY 02/27/20 09/12/23 History Rosuvastatin Calcium [Crestor] 20 mg PO HS@199902/27/20 09/12/23 History Amiodarone [Cordarone] 200 mg PO DAILY 09/12/23 09/12/23 History Ascorbic Acid [Vitamin C] 250 mg PO W/LUNCH 09/12/23 09/12/23 History Cholecalciferol [Vitamin D3 (25 25 mcg PO W/LUNCH 09/12/23 09/12/23 History Mcg = 1000 Iu)] Empagliflozin [Jardiance] 10 mg PO DAILY 09/12/23 09/12/23 History Ezetimibe [Zetia] 10 mg PO HS 09/12/23 09/12/23 History Metoprolol Succinate (ER) [Toprol 100 mg PO DAILY 09/12/23 09/12/23 History XL] Rivaroxaban [Xarelto] 15 mg PO W/SUPPER 09/12/23 09/12/23 History Sacubitril/Valsartan [Entresto 24 1 tab PO BID 09/12/23 09/12/23 History mg-26 mg Tablet] Zinc Gluconate [Zinc] 50 mg PO W/LUNCH 09/12/23 09/12/23 History Ranolazine [Ranexa] 500 mg PO Q12HR #60 tab 09/13/23 Rx Allergies Allergy/AdvReac Type Severity Reaction Status Date / Time No Known Allergies Allergy Verified 09/12/23 14:37 Physical Exam Vitals: Vital Signs Temp Pulse Pulse Resp BP BP Pulse Ox 09/12/23 20:34 97.5 F L 87 16 116/77 98 09/12/23 17:21 98.0 F 94 18 130/84 99 09/12/23 17:18 18 09/12/23 16:20 88 18 124/83 97 09/12/23 16:11 90 18 124/83 96 09/12/23 12:44 123/78 09/12/23 10:01 97.4 F L 88 18 115/22 100 Intake and Output 09/12/23 09/12/23 09/12/23 06:59 14:59 22:59 Intake Total 118 Balance 118 Intake: Oral 118 Other: Voiding Method Toilet Weight 83.915 kg 83.915 kg PHYSICAL EXAMINATION: Patient is lying in the bed comfortably, no acute distress, awake alert and oriented.. HEENT: Normocephalic. Neck is supple. Pupils reactive. Nostrils clear. Oral cavity is moist. Neck reveals no JVD, carotid bruits, or thyromegaly. CHEST EXAMINATION: Trachea is central. Symmetrical expansion. Lung shah clear to auscultation and percussion. CARDIAC: Normal S1, S2 with no gallops. No murmurs ABDOMEN: Soft. Bowel sounds normal. No organomegaly. No abdominal bruits. Extremities: reveal no edema. No clubbing or cyanosis Neurologically awake, alert, oriented x3 with well-coordinated movements. No focal deficits noted Skin: No rash or skin lesions. Psychiatric: Coperative. Nonsuicidal Musculoskeletal: No joint swelling or deformity. Normal range of motion. Results CBC & Chem 7: 09/12/23 10:07 09/13/23 06:41 Labs: Abnormal Lab Results - Last 24 Hours (Table) 09/12/23 09/12/23 09/12/23 Range/Units 10:07 10:07 10:07 Hgb 12.1 L (13.0-17.5) gm/dL MCHC 29.9 L (31.0-37.0) g/dL RDW 18.1 H (11.5-15.5) % Plt Count 115 L (150-450) k/uL PT 13.6 H (10.0-12.5) sec INR 1.3 H (<1.2) Sodium 135 L (137-145) mmol/L Potassium 5.2 H (3.5-5.1) mmol/L Chloride 109 H (98-107) mmol/L Carbon Dioxide 20 L (22-30) mmol/L BUN 41 H (9-20) mg/dL Glucose 150 H (74-99) mg/dL POC Glucose (mg/dL) (70-110) mg/dL AST 126 H (17-59) U/L ALT 133 H (4-49) U/L Alkaline Phosphatase 158 H (38-126) U/L 09/12/23 09/12/23 Range/Units 17:09 20:42 Hgb (13.0-17.5) gm/dL MCHC (31.0-37.0) g/dL RDW (11.5-15.5) % Plt Count (150-450) k/uL PT (10.0-12.5) sec INR (<1.2) Sodium (137-145) mmol/L Potassium (3.5-5.1) mmol/L Chloride (98-107) mmol/L Carbon Dioxide (22-30) mmol/L BUN (9-20) mg/dL Glucose (74-99) mg/dL POC Glucose (mg/dL) 118 H 200 H (70-110) mg/dL AST (17-59) U/L ALT (4-49) U/L Alkaline Phosphatase (38-126) U/L Thrombosis Risk Factor Assmnt - DVT/VTE Prophylaxis DVT/VTE Prophylaxis: Pharmacologic Prophylaxis ordered - Choose All That Apply Any of the Below Risk Factors Present?: Yes Each Factor Represents 1 point: Obesity (BMI >25) Other Risk Factors: Yes Each Risk Factor Represents 3 Points: Age 75 years or older Thrombosis Risk Factor Assessment Total Risk Factor Score: 4 Thrombosis Risk Factor Assessment Level: Moderate Risk Assessment and Plan Assessment: Atypical chest pain. Rule out ACS. Patient is having on and off chest pain for the past 1 month and occurring more frequently recently Dehydration volume depletion Elevated liver enzymes/transaminitis Hypertension Hyperlipidemia Diabetes type 2 [id number] Chronic atrial fibrillation on anticoagulation with Xarelto Coronary arteries history of 5 vessel CABG in 1993 History of aortic valve replacement History of permanent pacemaker placement Hypothyroidism. DVT prophylaxis patient is already on Xarelto Plan: Patient medically continue monitoring. Continue symptomatic management for chest pain. Serial EKG and troponin x 3. Patient otherwise tolerating oral diet. No complaints of nausea or vomiting. Encourage oral intake. Continue with home medications and follow-up renal function and follow-up liver enzymes. Cardiology was consulted for evaluation. Continue to follow closely. Time with Patient: Greater than 30
--- NOTE | 2023-09-13 14:38 | P.CRDCN ---
History of Present Illness Consult date: 09/13/23 History of present illness: HISTORY OF PRESENTING ILLNESS 82-year-old with past medical history of CAD s/p CABG, s/p PCI, aortic valve replacement, pacemaker 2010, chronic atrial fibrillation on anticoagulation with Xarelto. He also has history of type 2 diabetes, hypertension, hyperlipidemia, history of bladder cancer. Patient follows up with a conference interpreter from [facility]. He recently had a heart catheterization procedure where he was told that he does not need any cardiac interventions. This time he presented to the hospital because of substernal chest pressure which is most in the epigastric and precordial area. Pain started for last 1 to 2 days, on and off, no particular relationship with activity. He denies any palpitations lightheadedness or dizziness. Admission ECG shows underlying atrial fibrillation with ventricularly paced rhythm, hemoglobin 12, platelet 115, sodium 135, potassium 5.2, creatinine 1.25. Creatinine appears to be at baseline. Troponins were not elevated. Clinically patient does not appear volume overloaded. REVIEW OF SYSTEMS 14 point review of system is negative except what is mentioned above in HPI. PHYSICAL EXAMINATION Vital signs reviewed. Head: Normocephalic. Eyes: Sclerae nonicteric. Neck: Brisk carotid upstroke, no jugular venous distention. Lungs: Clear to auscultation. Heart: Irregular pulse, S1-S2, no S3, 2/6 systolic murmur Abdomen: Soft nontender, positive bowel sounds. Extremities: No edema, Neuro: Alert, oritented, no focal deficits. Detailed neuro exam was not performed. ASSESSMENT Atypical chest pain. Chest pain not related to activity or rest. Most likely exacerbation of stable angina. Patient had a recent heart cath with no requirement for interventions. Rule out of ACS History of CAD s/p PCI and CABG Sick sinus syndrome status post PPM in 2010 chronic atrial fibrillation, on anticoagulation with Xarelto with no concerns of bleeding CKD Type 2 diabetes Essential hypertension Dyslipidemia PLAN I would resume patient's home medications which would include Entresto 24/26 mg twice daily, Crestor 20 mg, Xarelto 15 mg, metoprolol succinate 100 mg, Jardiance 10 mg, aspirin 81 mg, amiodarone 200 mg daily. To optimize his antianginals further, I will add his Ranexa 500 mg twice daily. I cannot add Imdur because of low normal blood pressure. I recommend to follow-up with primary conference interpreter in next 1 to 2 weeks, okay to dc Tylor Storm MD, FACC, RPVI Thank you for allowing [facility] to participate in this patient's care. Feel free to reach out in case of any followup questions. Past Medical History Past Medical History: Atrial Fibrillation, Diabetes Mellitus, Hyperlipidemia, Hy pertension Additional Past Medical History / Comment(s): bladder CA, long haul covid. History of Any Multi-Drug Resistant Organisms: None Reported Past Surgical History: Appendectomy, Cardiac Valve Replacement, Coronary Bypas s/CABG, Heart Catheterization With Stent, Pacemaker, Tonsillectomy Additional Past Surgical History / Comment(s): stents in right leg, aortic valve replacement and brain bleed, cardioversion, 5 vessel cabg 1993, Past Anesthesia/Blood Transfusion Reactions: No Reported Reaction Date of Last Stent Placement:: 2006 Type of Cardiac Device: Permanent Pacemaker Device Placement Date:: 2010 Past Psychological History: No Psychological Hx Reported Smoking Status: Never smoker Past Alcohol Use History: None Reported Past Drug Use History: None Reported - Past Family History Brother(s) Additional Family Medical History / Comment(s): prostate ca Father Additional Family Medical History / Comment(s): cancer- unknown Medications and Allergies Home Medications Medication Instructions Recorded Confirmed Type ALPRAZolam [Xanax] 0.5 mg PO HS 12/19/16 09/12/23 History Nitroglycerin 0.4 mg SL Q5M PRN 12/19/16 09/12/23 History Aspirin [Adult Low Dose Aspirin EC] 81 mg PO DAILY 02/23/19 09/12/23 History Levothyroxine Sodium [Synthroid] 88 mcg PO AC-[id number] 02/23/19 09/12/23 History Acetaminophen [Tylenol] 1,000 mg PO Q4-6H PRN 02/27/20 09/12/23 History Finasteride [Proscar] 5 mg PO DAILY 02/27/20 09/12/23 History Rosuvastatin Calcium [Crestor] 20 mg PO HS@199902/27/20 09/12/23 History Amiodarone [Cordarone] 200 mg PO DAILY 09/12/23 09/12/23 History Ascorbic Acid [Vitamin C] 250 mg PO W/LUNCH 09/12/23 09/12/23 History Cholecalciferol [Vitamin D3 (25 25 mcg PO W/LUNCH 09/12/23 09/12/23 History Mcg = 1000 Iu)] Empagliflozin [Jardiance] 10 mg PO DAILY 09/12/23 09/12/23 History Ezetimibe [Zetia] 10 mg PO HS 09/12/23 09/12/23 History Metoprolol Succinate (ER) [Toprol 100 mg PO DAILY 09/12/23 09/12/23 History XL] Rivaroxaban [Xarelto] 15 mg PO W/SUPPER 09/12/23 09/12/23 History Sacubitril/Valsartan [Entresto 24 1 tab PO BID 09/12/23 09/12/23 History mg-26 mg Tablet] Zinc Gluconate [Zinc] 50 mg PO W/LUNCH 09/12/23 09/12/23 History Ranolazine [Ranexa] 500 mg PO Q12HR #60 tab 09/13/23 Rx Allergies Allergy/AdvReac Type Severity Reaction Status Date / Time No Known Allergies Allergy Verified 09/12/23 14:37 Physical Exam Vitals: Vital Signs Temp Pulse Pulse Resp BP BP BP 09/13/23 08:51 09/13/23 07:00 97.8 F 89 16 104/68 09/13/23 02:41 97.6 F 89 16 96/61 09/12/23 20:34 97.5 F L 87 16 116/77 09/12/23 17:21 98.0 F 94 18 130/84 09/12/23 17:18 18 09/12/23 16:20 88 18 124/83 09/12/23 16:11 90 18 124/83 Pulse Ox FiO2 09/13/23 08:51 97 21 09/13/23 07:00 97 09/13/23 02:41 99 09/12/23 20:34 98 09/12/23 17:21 99 09/12/23 17:18 09/12/23 16:20 97 09/12/23 16:11 96 Intake and Output 09/12/23 09/13/23 09/13/23 22:59 06:59 14:59 Intake Total 118 Balance 118 Intake: Oral 118 Other: Voiding Method Toilet Toilet # Voids 1 1 Weight 83.915 kg Results 09/12/23 10:07 09/13/23 06:41 Cardiac Enzymes 09/12/23 09/12/23 09/13/23 Range/Units 14:20 17:16 06:41 AST 73 H (17-59) U/L Troponin I <0.012 0.013 (0.000-0.034) ng/mL Lipids 09/13/23 Range/Units 06:41 Triglycerides 102.00 (0.00-149.00) mg/dL Cholesterol 124.00 (0.00-200.00) mg/dL HDL Cholesterol 61.30 H (40.00-60.00) mg/dL Cholesterol/HDL Ratio 2.02 Ratio Comprehensive Metabolic Panel 09/13/23 Range/Units 06:41 Sodium 136 L (137-145) mmol/L Potassium 4.6 (3.5-5.1) mmol/L Chloride 108 H (98-107) mmol/L Carbon Dioxide 22 (22-30) mmol/L BUN 35 H (9-20) mg/dL Creatinine 1.35 H (0.66-1.25) mg/dL Glucose 120 H (74-99) mg/dL Calcium 8.6 (8.4-10.2) mg/dL AST 73 H (17-59) U/L ALT 107 H (4-49) U/L Alkaline Phosphatase 152 H (38-126) U/L Total Protein 6.1 L (6.3-8.2) g/dL Albumin 3.8 (3.5-5.0) g/dL Intake and Output 09/12/23 09/13/23 09/13/23 22:59 06:59 14:59 Intake Total 118 Balance 118 Intake: Oral 118 Other: Voiding Method Toilet Toilet # Voids 1 1 Weight 83.915 kg 09/12/23 10:07 09/13/23 06:41
[2023-09-13] MEDS ORDERED: RIVAROXABAN 15 MG TAB PO SCH (17:30)
== END 2023-09-13 13:50 | disposition home or self-care (01) ==
LOC: EC 09:39 → 6NMEDSUR 13:44
PROVIDERS: ADMIT Internal Medicine; ATTEND Internal Medicine
DX: I48.20 Chronic atrial fibrillation, unspecified (principal); I10 Essential (primary) hypertension; E11.9 Type 2 diabetes mellitus without complications; E78.5 Hyperlipidemia, unspecified; I25.10 Atherosclerotic heart disease of native coronary artery without angina pectoris; Z95.5 Presence of coronary angioplasty implant and graft; Z90.49 Acquired absence of other specified parts of digestive tract; E86.0 Dehydration; R79.89 Other specified abnormal findings of blood chemistry; Z79.01 Long term (current) use of anticoagulants; E03.9 Hypothyroidism, unspecified; Z95.0 Presence of cardiac pacemaker; R74.01 Elevation of levels of liver transaminase levels
CPT/HCPCS: 99285; 36415; 94760; 93005; 80061; 80053 ×2; 83735; 84484; 85025; 85610; 85730; 71046; G0378 ×2; S0138